=== PATIENT | male | born 1950 | race Caucasian/White ===

== ENCOUNTER 2018-06-01 10:30 | Outpatient (RCR) | payer OTHER, MEDICARE, SELFPAY ==
--- NOTE | 2018-03-23 11:12 | HP.PTEVAL_ITS ---
Patient's Visit Information KHALIDA COREA is a 67 year old M referred to Physical Therapy by JOHNNIE MATIAS with a diagnosis of Fibromyalgia. Date of Evaluation: 03/23/18 Physical Therapist: Shine Barbour PT, - Visit Plan Frequency: 2x /Week Duration: 4 Weeks Plan: B UE and LE strengthening, core stabilization, scap stab, bike, and HEP - Subjective Subjective: Pt reports chronic body pain throughout his entire body. Pt reports he hurts the most in his shoulders, LB, and LE's. Pt reports he has had PT 3 different times, which helped each time. Pt reports he is going to have a cat scan performed on 04/07/18 on his whole body. Pt reports he has been diagnosed with Fibromyalgia as well. Pt reports he has sleep diff secondary to pain. Pt reports he has a difficult time bending over to pick anything up secondary to B hip and LBP. Pt reports his major goal is to get a HEP that he can perform at his own. overall boedy pain ranges from 3/10-9/10 at worst (lifting heavy objects off of the floor) - Pain overall body pain Pain Intensity (Out of 10): 3 Pain Intensity Range: 9 - Objective Neuro: B UE and LE sensation is WNL to light touch. B patellar tendon reflex= 3/ 3, bicepital reflex= 1/3. MMT: B UE's are grossly 4+/5 throughout while B LE's are grossly 4-/5 throughout. Gait: Pt is able to ambulate independently 300' until feeling fatigued and needing to sit down and rest - Goals Goal 1:: Decrease Overall body pain x 25% to aid with sleep Goal Time Frame: 4-6 Weeks Goal 2:: Increase B UE and LE strength x 1/2 grade to aid with IADL's Goal Time Frame: 4-6 Weeks Goal 3:: Pt will be able to ambulate 500 feet without becoming too fatigued to aid with community ambulation Goal Time Frame: 4-6 Weeks Goal 4:: I with HEP Goal Time Frame: 4-6 Weeks - Rehabilitation Potential Physical Therapy Diagnosis: Pt has UE weakness, LE weakness, and limited sheree for ambulation secondary to fibromyalgia Rehabilitation Potential: Good - Anticipated Interventions Patient/Client Instruction: Educate patient on: Condition, Plan of Care For the Purpose of:: To improve self management Therapeutic Exercise to Include: Strength training, Endurance training, Balance training, Postural training, Gait and locomotor training, Dynamic Lumbar Stabilization, Scapular Strength/Stabilization For the Purpose of:: To decrease pain, To improve muscle performance and motor function, To increase tolerance to activity/condition/position Thank you for the opportunity to evaluate your patient. For Medicare and Medicare HMO plans, please review the plan of care and approve it. It will need to be FAXED BACK to us at [phone] for Medicare purposes. Please let me know if there are questions or concerns regarding this plan of care. Physician Signature: Date:
--- NOTE | 2018-06-01 11:36 | HP.PTDCSUM ---
HP - PT D/C Summary It has been my pleasure to treat KHALIDA COREA under orders from JOHNNIE MATIAS, for the diagnosis of Fibromyalgia for a total of 7 visit(s). Discharge Date: Please see the following information for a summary of their discharge status. - Subjective Subjective: Pt reports he feels much better since beginning PT. - Pain overall body pain Pain Intensity (Out of 10): 6 - Objective Objective/Function: Overall body pain has improved 50%. B UE and LE strength is now 5/5 throughout. Pt is able to ambulate 600 feet until needing to sit down secondary to LBP. Pt is I with HEP. Rx goals achieved - Goals Goal 1:: Decrease Overall body pain x 25% to aid with sleep Goal Progress: Goal Met Goal 2:: Increase B UE and LE strength x 1/2 grade to aid with IADL's Goal Progress: Goal Met Goal 3:: Pt will be able to ambulate 500 feet without becoming too fatigued to aid with community ambulation Goal Progress: Goal Met Goal 4:: I with HEP Goal Progress: Goal Met - Plan Plan: Discharge - D/C Information If there are questions or concerns regarding this patient's physical therapy, please feel free to call me at [phone]. Thank you for the referral of this patient. Sincerely, Shine Barbour, PT,
== END 2018-06-01 14:06 | disposition home or self-care (01) ==
LOC: PT 10:30
PROVIDERS: Family Provider Family Medicine; PCP Family Medicine
DX: M79.7 Fibromyalgia (principal)
CPT/HCPCS: 97110; 97161; 97530; G8981; G8982

== ENCOUNTER → 2018-06-23 09:59 | Outpatient (CLI) | payer OTHER, MEDICARE, SELFPAY ==
--- NOTE | 2018-06-23 10:45 | MRI_ITS ---
STUDY: MRI BRAIN WITH AND WITHOUT CONTRAST REASON FOR EXAM: Male, 67 years old. Dizziness history of lung cancer TECHNIQUE: Standardized multiplanar fat and water weighted pulse sequences were obtained. 8 ml of Gadavist contrast material was administered intravenously for the contrast portion of the examination. COMPARISON: CT of the brain on June 12, 2011 FINDINGS: Mild atrophy and periventricular white matter ischemic changes without mass effect or restricted diffusion.. Normal bilateral basal ganglia. Normal thalami. There is no extra-axial fluid accumulation. Normal flow voids within the major intracranial circulation suggesting patency by spin echo criteria. Normal venous enhancement. There is no enhancing intra-axial or extra-axial abnormality. Empty sella deformity of uncertain clinical significance. Normal, infundibular stalk, optic chiasm and hypothalamus. Normal tectal plate and pineal gland. Normal midbrain, kenneth and medulla. Normal cerebellum. Normal basal cisterns. Normal bilateral temporal bones. Normal bilateral internal auditory canals. No demonstrated orbital abnormality, within the constraints of a routine brain study. Minor mucosal thickening of the ethmoid air cells.. Normal calvarium and skull base. Normal visualized soft tissue structures. Normal visualized upper cervical spine. MRI/Brain W/WO Contrast IMPRESSION: Minor atrophy and periventricular white matter ischemic changes. No evidence for acute infarct or metastatic disease Electronically Signed: Remi Smith MD at 16:25 EDT , Service support ,
== END ==
PROVIDERS: Family Provider Family Medicine; PCP Family Medicine
DX: C34.90 Malignant neoplasm of unspecified part of unspecified bronchus or lung (principal)
CPT/HCPCS: 70553; A9585

== ENCOUNTER 2018-06-24 15:22 | Emergency (ER) | payer MEDICARE, OTHER, SELFPAY ==
[2018-06-24 15:23] VITALS: BP 107/58; PULSE 103; RESP 18; TEMP 37; O2SAT 91; BMI 26.5
[2018-06-24 15:32] VITALS: PULSE 100; RESP 16; O2SAT 88; O2SAT 93
--- NOTE | 2018-06-24 15:49 | EKG12_ITS ---
Test Reason : SYNCOPE Blood Pressure : / mmHG Vent. Rate : 097 BPM Atrial Rate : 097 BPM P-R Int : 192 ms QRS Dur : 082 ms QT Int : 374 ms P-R-T Axes : 064 -15 063 degrees QTc Int : 474 ms Normal sinus rhythm Leftward axis Low voltage QRS (limb leads) Septal infarct , age undetermined Abnormal ECG Confirmed by JAGJIT LOVING, JESUS ([id number]), photograph editor JUANA RICHMOND ([id number]) on 06/29/2018 1:41:24 PM Referred By: NAVEEN Confirmed By:JESUS DANIELSON MD
--- NOTE | 2018-06-24 15:50 | ED.VIS.GEN ---
History of Present Illness Chief Complaint: Fall Informant: Patient, Family Onset: Today Narrative: Patient has some type of cancer. He does not know what type, but knows that it was found in his lymph nodes. He is not undergoing any treatment yet, he is still in the diagnostic and staging phases, he had an outpatient MRI with IV gadolinium-based contrast yesterday, states he felt lightheaded directly after receiving the injection, but that passed. Yesterday evening he felt malaise, this morning he woke up feeling very weak and lightheaded. No headaches, nausea, abdominal pain, focal neurologic symptoms. States his mouth feels dry and has been drinking a lot of water, and that is been making him urinate a lot. Just prior to arrival we tried to stand up but his legs were too weak to hold him, this caused him to fall to his knees. Denies any other injury, his pain is mild there. For these reasons he was brought to the ER. Past Medical History - Allergies and Home Meds Allergies/Adverse Reactions: Allergies Iodinated Contrast- Oral and IV Dye [CONTRASTS] Allergy (Unknown, Unverified 06/24/18 15:23) Unknown patient unable to confirm allergy- listed on history from [place] Primary Care Physician: Rafiq Morales III, MD [Primary Care Provider] - Smoking Status: Current every day smoker Review of Systems All systems negative except as indicated General: Reports: Malaise. Denies: Chills, Fever Eyes: Denies: Visual changes - bilaterally, Diplopia ENT: Denies: Bilateral ear pain Respiratory: Reports: Dyspnea - Sometimes not now, Cough - Chronic. Denies: Sputum Gastrointestinal: Denies: Abdominal pain, Nausea, Vomiting, Diarrhea, Melena, Hematochezia Genitourinary: Reports: Frequency. Denies: Dysuria, Hematuria Musculoskeletal: Reports: Back pain - Left lower, chronic. Denies: Myalgias, Arthralgias, Neck pain, Swelling, Extremity Pain Skin: Denies: Rash Neurological: Reports: Headache, Weakness - Nonfocal, generalized. Denies: Parasthesia, Numbness Endocrine: Reports: Polyuria, Polydipsia. Denies: Heat intolerance, Cold intolerance Allergy: Denies: Swelling of the mouth, Swelling of the tongue Physical Exam Vital Signs/Narrative: Vital Signs Temp Pulse Resp BP Pulse Ox 06/24/18 15:32 100 16 93 06/24/18 15:23 98.6 F 103 H 18 107/58 L 91 Inital Vital Signs reviewed: Yes General: Well nourished, Well developed Head: Normocephalic, Atraumatic Eyes: Perrl, EOMI ENT: No rhinorrhea, TM's clear, Dry mucous membranes - Partially. Negative for: Nasal congestion, Sinus tenderness Neck: Supple, Nontender, No lymphadenopathy, No JVD Cardiovascular: Regular rate, Regular rhythm, No murmurs, Tachycardia - mild Respiratory: No distress, CTA bilaterally, Chest nontender Abdomen: Soft, Nontender, Nondistended, Normal bowel sounds Back: Nontender, Normal Inspection Extremities: Nontender, No edema, - - Full range of motion both knees, no effusion, no bony tenderness, all ligaments stable with short endpoints and no pain on stressing. Skin: Normal color, No rash, - - Bilateral anterior knee abrasions, just distal to patellae. No other skin lesions. Neurological: Alert, Oriented x3, Cranial nerves II-XII grossly intact, Normal Strength, Normal Sensation Psychological: Normal affect Diagnostic/Tx/Re-eval Chest X-Ray - ED: 2 View, Read by Radiologist, Right Infiltrate Impressions Chest X-Ray 06/24/18 16:40 IMPRESSION: COPD with fibrosis. Cannot exclude active infiltrate especially in the lower right lung. Electronically Signed: Babak Cortez MD at 17:00 EDT , Service support , 06/24/18 16:40 Chest PA and Lateral [RAD] Stat Laboratory Results 06/24/18 06/24/18 Range/Units 15:33 15:33 WBC 6.4 (4.4-11.0) K/mm3 RBC 5.37 (4.6-6.2) M/mm3 Hgb 16.0 (13.0-16.5) g/dl Hct 48.0 (40-54) % MCV 89.4 (80-94) fL MCH 29.8 (27.0-32.0) pg MCHC 33.3 (32-36) g/gl RDW 14.7 H (11.6-14.6) % RDW Differential 47.7 H (35.1-43.9) fl Plt Count 217 (150-450) K/mm3 MPV 9.7 (6.2-12.0) fl Immature Gran % (Auto) 0.000 (0.0-0.9) % Neut % (Auto) 57.5 (47-70) % Lymph % (Auto) 28.0 (19-41) % [place] % (Auto) 10.7 H (0-10) % Eos % (Auto) 3.3 (0-5) % Baso % (Auto) 0.5 (0-1) % Absolute Neuts (auto) 3.7 (2.0-7.7) X10^3/uL Absolute Lymphs (auto) 1.78 (0.83-4.51) X10^3/ul Total Counted Not Reportable Sodium 138 (136-145) mmol/L Potassium 4.2 (3.5-5.1) mmol/L Chloride 102 (98-107) mmol/L Carbon Dioxide 27.0 (21.0-32.0) mmol/L Anion Gap 9 (5-15) BUN 14 (7-18) mg/dL Creatinine 1.16 (0.70-1.30) mg/dL Estim Creat Clear Calc 52.28 ml/min Est GFR (MDRD) Af Amer 80 (>60) mL/min Est GFR (MDRD) Non-Af 66 (>60) mL/min BUN/Creatinine Ratio 12.1 (10-20) RATIO Glucose 146 H (74-106) mg/dL Calcium 8.7 (8.5-10.1) mg/dL Troponin I < 0.015 (<0.045) ng/mL - Rhythm Strip Rhythm Strip: Sinus Rhythm Rate: 95 Ectopy: None - EKG Initial EKG Interpretation: Sinus Rhythm, No Acute Injury Pattern, Non-Specific ST Changes - Anterior, - - No acute ST segment deviations - Medical Decision Making Patient's oxygen saturations went down to 88% on room air, he was placed on 2 L nasal cannula and is satting comfortably at 94%. His labs are reassuring, but his chest x-ray shows right lower lobe infiltrate, that is new but his last x-ray on record here was from 2005. His MRI of the brain yesterday was unremarkable sinus CT of the head was performed or felt necessary. He did not hit his head when he fell today. He has no significant bony tenderness of his knees motion is full, therefore do not think they need x-rays that are just scraped. He has had no recent admissions to the hospital, and is not being treated with any chemotherapy yet, so treated with Levaquin for what appears to be community-acquired pneumonia. His white count is normal, but the x-ray is telling. Discussed with the patient at length, he is apprehensive about staying in the hospital. I discussed risks and benefits, including the risk of further hypoxemia, myocardial infarction, which can result in . He understands that it wants to leave AGAINST MEDICAL ADVICE. He says he has appointments. He also understands that by admitting him, he will be more likely to make those appointments because he will be more likely to improve quicker. Says he understands that. He also understands that I cannot send him home on oxygen. He does agree to stay for a dose of IV Levaquin, and I advised him to return if he changes his mind or follow-up with his doctor as soon as he possibly can. was present for all of this conversation. ED Disposition - Plan for ED Patient: Disposition: Against Medical Advice Chief Complaint: Fall Diagnosis: CAP (community acquired pneumonia), Hypoxemia, Orthostatic hypotension, Generalized weakness, Abrasion of knee, bilateral Instructions: ED Pneumonia Adult, ED Hypotension Orthostatic Prescriptions: Levofloxacin [Levaquin] 750 mg PO DAILY #4 tab Referrals: Rafiq Morales III, MD [Primary Care Provider] - As soon as possible Additional Instructions: Your antibiotic was sent electronically to [facility] in [place]. It is to be started sometime tomorrow. Take the pill approximately the same time every day. He left AGAINST MEDICAL ADVICE. You are welcome to change her mind and return to the hospital for admission. Otherwise, follow-up with her doctor soon as you are able for reevaluation.
--- NOTE | 2018-06-24 15:54 | ED.DCSUM_ITS ---
History of Present Illness Chief Complaint: Fall Informant: Patient, Family Onset: Today Narrative: Patient has some type of cancer. He does not know what type, but knows that it was found in his lymph nodes. He is not undergoing any treatment yet, he is still in the diagnostic and staging phases, he had an outpatient MRI with IV gadolinium-based contrast yesterday, states he felt lightheaded directly after receiving the injection, but that passed. Yesterday evening he felt malaise, this morning he woke up feeling very weak and lightheaded. No headaches, nausea , abdominal pain, focal neurologic symptoms. States his mouth feels dry and has been drinking a lot of water, and that is been making him urinate a lot. Just prior to arrival we tried to stand up but his legs were too weak to hold him, this caused him to fall to his knees. Denies any other injury, his pain is mild there. For these reasons he was brought to the ER. Past Medical History - Allergies and Home Meds Allergies/Adverse Reactions: Allergies Iodinated Contrast- Oral and IV Dye [CONTRASTS] Allergy (Unknown, Unverified 12/11 15:23) Unknown patient unable to confirm allergy- listed on history from [place] Primary Care Physician: Rafiq Morales III, MD [Primary Care Provider] - Smoking Status: Current every day smoker Review of Systems All systems negative except as indicated General: Reports: Malaise. Denies: Chills, Fever Eyes: Denies: Visual changes - bilaterally, Diplopia ENT: Denies: Bilateral ear pain Respiratory: Reports: Dyspnea - Sometimes not now, Cough - Chronic. Denies: Sputum Gastrointestinal: Denies: Abdominal pain, Nausea, Vomiting, Diarrhea, Melena, Hematochezia Genitourinary: Reports: Frequency. Denies: Dysuria, Hematuria Musculoskeletal: Reports: Back pain - Left lower, chronic. Denies: Myalgias, Arthralgias, Neck pain, Swelling, Extremity Pain Skin: Denies: Rash Neurological: Reports: Headache, Weakness - Nonfocal, generalized. Denies: Parasthesia, Numbness Endocrine: Reports: Polyuria, Polydipsia. Denies: Heat intolerance, Cold intolerance Allergy: Denies: Swelling of the mouth, Swelling of the tongue Physical Exam Vital Signs/Narrative: Vital Signs Temp Pulse Resp BP Pulse Ox 06/24/18 15:32 100 16 93 06/24/18 15:23 98.6 F 103 H 18 107/58 L 91 Inital Vital Signs reviewed: Yes General: Well nourished, Well developed Head: Normocephalic, Atraumatic Eyes: Perrl, EOMI ENT: No rhinorrhea, TM's clear, Dry mucous membranes - Partially. Negative for : Nasal congestion, Sinus tenderness Neck: Supple, Nontender, No lymphadenopathy, No JVD Cardiovascular: Regular rate, Regular rhythm, No murmurs, Tachycardia - mild Respiratory: No distress, CTA bilaterally, Chest nontender Abdomen: Soft, Nontender, Nondistended, Normal bowel sounds Back: Nontender, Normal Inspection Extremities: Nontender, No edema, - - Full range of motion both knees, no effusion, no bony tenderness, all ligaments stable with short endpoints and no pain on stressing. Skin: Normal color, No rash, - - Bilateral anterior knee abrasions, just distal to patellae. No other skin lesions. Neurological: Alert, Oriented x3, Cranial nerves II-XII grossly intact, Normal Strength, Normal Sensation Psychological: Normal affect Diagnostic/Tx/Re-eval Chest X-Ray - ED: 2 View, Read by Radiologist, Right Infiltrate Impressions Chest X-Ray 06/24/18 16:40 IMPRESSION: COPD with fibrosis. Cannot exclude active infiltrate especially in the lower right lung. Electronically Signed: Babak Cortez MD at 17:00 EDT , Service support , 06/24/18 16:40 Chest PA and Lateral [RAD] Stat Laboratory Results 06/24/18 06/24/18 Range/Units 15:33 15:33 WBC 6.4 (4.4-11.0) K/mm3 RBC 5.37 (4.6-6.2) M/mm3 Hgb 16.0 (13.0-16.5) g/dl Hct 48.0 (40-54) % MCV 89.4 (80-94) fL MCH 29.8 (27.0-32.0) pg MCHC 33.3 (32-36) g/gl RDW 14.7 H (11.6-14.6) % RDW Differential 47.7 H (35.1-43.9) fl Plt Count 217 (150-450) K/mm3 MPV 9.7 (6.2-12.0) fl Immature Gran % (Auto) 0.000 (0.0-0.9) % Neut % (Auto) 57.5 (47-70) % Lymph % (Auto) 28.0 (19-41) % [place] % (Auto) 10.7 H (0-10) % Eos % (Auto) 3.3 (0-5) % Baso % (Auto) 0.5 (0-1) % Absolute Neuts (auto) 3.7 (2.0-7.7) X10^3/uL Absolute Lymphs (auto) 1.78 (0.83-4.51) X10^3/ul Total Counted Not Reportable Sodium 138 (136-145) mmol/L Potassium 4.2 (3.5-5.1) mmol/L Chloride 102 (98-107) mmol/L Carbon Dioxide 27.0 (21.0-32.0) mmol/L Anion Gap 9 (5-15) BUN 14 (7-18) mg/dL Creatinine 1.16 (0.70-1.30) mg/dL Estim Creat Clear Calc 52.28 ml/min Est GFR (MDRD) Af Amer 80 (>60) mL/min Est GFR (MDRD) Non-Af 66 (>60) mL/min BUN/Creatinine Ratio 12.1 (10-20) RATIO Glucose 146 H (74-106) mg/dL Calcium 8.7 (8.5-10.1) mg/dL Troponin I < 0.015 (<0.045) ng/mL - Rhythm Strip Rhythm Strip: Sinus Rhythm Rate: 95 Ectopy: None - EKG Initial EKG Interpretation: Sinus Rhythm, No Acute Injury Pattern, Non-Specific ST Changes - Anterior, - - No acute ST segment deviations - Medical Decision Making Patient's oxygen saturations went down to 88% on room air, he was placed on 2 L nasal cannula and is satting comfortably at 94%. His labs are reassuring, but his chest x-ray shows right lower lobe infiltrate, that is new but his last x- ray on record here was from 2005. His MRI of the brain yesterday was unremarkable sinus CT of the head was performed or felt necessary. He did not hit his head when he fell today. He has no significant bony tenderness of his knees motion is full, therefore do not think they need x-rays that are just scraped. He has had no recent admissions to the hospital, and is not being treated with any chemotherapy yet, so treated with Levaquin for what appears to be community-acquired pneumonia. His white count is normal, but the x-ray is telling. Discussed with the patient at length, he is apprehensive about staying in the hospital. I discussed risks and benefits, including the risk of further hypoxemia, myocardial infarction, which can result in . He understands that it wants to leave AGAINST MEDICAL ADVICE. He says he has appointments. He also understands that by admitting him, he will be more likely to make those appointments because he will be more likely to improve quicker. Says he understands that. He also understands that I cannot send him home on oxygen. He does agree to stay for a dose of IV Levaquin, and I advised him to return if he changes his mind or follow-up with his doctor as soon as he possibly can. was present for all of this conversation. ED Disposition - Plan for ED Patient: Disposition: Against Medical Advice Chief Complaint: Fall Diagnosis: CAP (community acquired pneumonia), Hypoxemia, Orthostatic hypotension, Generalized weakness, Abrasion of knee, bilateral Instructions: ED Pneumonia Adult, ED Hypotension Orthostatic Prescriptions: Levofloxacin [Levaquin] 750 mg PO DAILY #4 tab Referrals: Rafiq Morales III, MD [Primary Care Provider] - As soon as possible Additional Instructions: Your antibiotic was sent electronically to [facility] in [place]. It is to be started sometime tomorrow. Take the pill approximately the same time every day. He left AGAINST MEDICAL ADVICE. You are welcome to change her mind and return to the hospital for admission. Otherwise, follow-up with her doctor soon as you are able for reevaluation.
[2018-06-24 16:05] LABS: Absolute Lymphocyte Count 1.78 X10^3/ul (0.83-4.51); Absolute Neutrophil Count 3.7 X10^3/uL (2.0-7.7); Basophil# 0.03 X10^3/uL; Basophil% 0.5 % (0-1); Eosinophil# 0.21 X10^3/uL; Eosinophils% 3.3 % (0-5); Lymphocyte # 1.78 X10^3/ul (4.0); Mean Corp Hgb Conc 33.3 g/gl (32-36); Mean Corpuscular Hgb 29.8 pg (27.0-32.0); Mean Corpuscular Volume 89.4 fL (80-94); Mean Platelet Vol. 9.7 fl (6.2-12.0); Monocyte# 0.68 X10^3/uL; Monocyte% 10.7 % (0-10); Neutrophil # 3.66 X10^3/uL (2.7-7.7); Neutrophil % 57.5 % (47-70); Platelet Count 217 K/mm3 (150-450); RBC Distribution Width CV 14.7 % (11.6-14.6); RBC Distribution Width SD 47.7 fl (35.1-43.9); Red Blood Count 5.37 M/mm3 (4.6-6.2); White Blood Count 6.4 K/mm3 (4.4-11.0)
[2018-06-24 16:10] LABS: POSITIVE COUNT NO; POSITIVE DIFFERENTIAL NO; POSITIVE MORPHOLOGY NO
[2018-06-24 16:15] VITALS: BP 110/58; BP 111/60; BP 80/63; PULSE 101; PULSE 92; PULSE 98
[2018-06-24] MEDS: 0.9% Normal Saline 1,000 ML 999 ML IV (16:19)
[2018-06-24 16:25] LABS: Anion Gap 9 (5-15); BUN 14 mg/dL (7-18); BUN/Creat Ratio 12.1 RATIO (10-20); Calcium,Total 8.7 mg/dL (8.5-10.1); Chloride 102 mmol/L (98-107); Creatinine, Serum 1.16 mg/dL (0.70-1.30); EST Glomerular Filtration Rate 66 mL/min (>60); Est Glom Filt Rate - Afr Amer 80 mL/min (>60); Estimated Creatinine Clearance 52.28 ml/min; Glucose 146 mg/dL (74-106); Potassium 4.2 mmol/L (3.5-5.1); Sodium Level 138 mmol/L (136-145)
--- NOTE | 2018-06-24 16:40 | RAD_ITS ---
STUDY: X-RAY CHEST REASON FOR EXAM: Male, 67 years old. Weakness TECHNIQUE: Frontal and lateral views of the chest. COMPARISON: None. FINDINGS: The lungs are hyperexpanded. There are coarsened interstitial markings suggestive of moderate chronic fibrosis. Since there no prior studies, active infiltrate is not excluded especially in the lower right lung. No gross effusions. Normal size heart. Normal mediastinum and davina. Normal visualized pulmonary arteries. Normal visualized aortic arch and descending thoracic aorta. The visualized bones and joints show degenerative changes. There is no demonstrated abnormality of the visualized soft tissue structures of the upper abdomen. RAD/Chest PA and Lateral IMPRESSION: COPD with fibrosis. Cannot exclude active infiltrate especially in the lower right lung. Electronically Signed: Babak Cortez MD at 17:00 EDT , Service support ,
[2018-06-24] MEDS: levoFLOXacin IV 750 MG/150 ML BAG 100 MG IV (17:55)
[2018-06-24 17:57] VITALS: BP 131/68; PULSE 80; RESP 16; O2SAT 98
--- NOTE | 2018-06-24 19:58 | ED.RN ---
PT WAS UNABLE TO OBTAIN A URINE SPECIMEN AND REQUESTED TO LEAVE. DR. HODGE INFORMED OF SAME AND PT LEFT AMA.
== END 2018-06-24 20:00 | disposition left against medical advice (07) ==
PROVIDERS: Emergency Provider Emergency Medicine; Family Provider Family Medicine; PCP Family Medicine
DX: J18.9 Pneumonia, unspecified organism (principal); R53.1 Weakness; R09.02 Hypoxemia; I95.1 Orthostatic hypotension; S80.212A Abrasion, left knee, initial encounter; S80.211A Abrasion, right knee, initial encounter; Z79.82 Long term (current) use of aspirin; Z79.899 Other long term (current) drug therapy; W18.30XA Fall on same level, unspecified, initial encounter; Y93.89 Activity, other specified; Y92.009 Unspecified place in unspecified non-institutional (private) residence as the place of occurrence of the external cause; Y99.8 Other external cause status
CPT/HCPCS: 71046; 80048; 84484; 85025; 93005; 96361; 96365; 96366; 99285; J7030

== ENCOUNTER 2018-06-29 08:11 | Inpatient (IN) | payer MEDICARE, OTHER, SELFPAY ==
[2018-06-29] VITALS (17 sets, daily range): BP systolic 98–138; BP diastolic 50–90; PULSE 73–90; RESP 14–20; TEMP 36.4–37.2; O2SAT 92–98; BMI 27.6; BMI 26.7; BMI 26.8
--- NOTE | 2018-06-29 08:26 | CT_ITS ---
STUDY: CT BRAIN WITHOUT CONTRAST REASON FOR EXAM: Male, 67 years old. FREQUENT FALLS RADIATION DOSAGE (If Supplied By Facility): CTDIvol = ( 44.99 ) mGy, DLP = ( 863.60 ) mGycm TECHNIQUE: Transaxial CT imaging of the brain was performed without administration of intravenous contrast material. Individualized dose optimization techniques were used for this CT. COMPARISON: None. FINDINGS: There is cerebral atrophy with widening of the extra-axial spaces and ventricular dilatation. There are areas of decreased attenuation within the white matter tracts of the supratentorial brain, consistent with microvascular disease changes. There is no intracranial hemorrhage. There are no findings of an acute ischemic infarction. Normal soft tissue structures. Normal visualized paranasal sinuses. CT/Brain/Head without Contrast IMPRESSION: Chronic involutional changes of the brain. Electronically Signed: Suyapa Bolton MD at 9:31 EDT Tel , Service support ,
--- NOTE | 2018-06-29 08:26 | RAD_ITS ---
STUDY: X-RAY CHEST REASON FOR EXAM: Male, 67 years old. Weakness, frequent falls TECHNIQUE: Single AP portable view of the chest. COMPARISON: 06/24/2018 FINDINGS: Cardiac monitoring leads overlie the chest. The interstitial markings remain prominent, unchanged from prior study. There is no demonstrated pleural abnormality. Normal size heart. Normal mediastinum and davina. Normal visualized pulmonary arteries. There is mild calcification of the aortic arch. There are diffuse degenerative changes of the visualized thoracic spine. Normal visualized ribs, clavicles, and shoulders. There is no demonstrated abnormality of the visualized soft tissue structures of the upper abdomen. RAD/Chest 1 View IMPRESSION: Chronic appearing interstitial markings. No focal consolidation. Electronically Signed: Agustín Hunter DO at 9:36 EDT Tel , Service support ,
--- NOTE | 2018-06-29 08:28 | ED.VISSUMM ---
- ER Visit Summary Date of Service: 06/29/18 Chief Complaint: Multiple falls, weakness History of Present Illness: The patient is a 67 M who states he has had multiple falls over the past week. He was seen here last week for the same thing. He had a full workup and was found to have pneumonia. He left AMA because he did not want to stay in the hospital at that time. He states he has continued to fall at home. He fell twice this morning and sustained abrasions to the knees. He states his legs just feel very weak. He does have a history of lung cancer which he is getting worked up at this time. Physical Examination: Vital signs reviewed. HEENT exam unremarkable. Heart is regular rate and rhythm without murmurs. Lungs are clear to auscultation. Abdomen is soft and nontender. Extremities reveal no edema. Skin exam shows abrasions to the knees bilaterally. He is alert and oriented ?3. He has decreased leg strength, left greater than right. His left leg strength is 2/5 in the right leg strength is 4/5. His NIH is 3 Test Results: EKG is normal sinus rhythm with rate of 90. No ST changes. Labs are unremarkable except for glucose of 179. Chest x-ray and CAT scan of the head both reveal chronic changes Emergency Department Course and Treatment: Patient has asymmetric leg weakness with multiple falls. No evidence of pneumonia on his chest x-ray. Patient requires admission for further workup. He may have had a slight stroke affecting his leg. He will need further workup for this. Discussed this with the hospitalist for admission Treatment Plan: [] Disposition: Admit Impression: Multiple falls, left leg weakness This note was generated with [employer] dictation software. It may contain incorrect words, spelling, and punctuation that were not noted in review of the chart prior to signing ED Disposition - Plan for ED Patient: Chief Complaint: Fall Referrals: Rafiq Morales III, MD [Primary Care Provider] -
[2018-06-29 08:51] LABS: Bedside Glucose 189 mg/dL (70-110)
[2018-06-29 09:00] LABS: Absolute Lymphocyte Count 2.06 X10^3/ul (0.83-4.51); Absolute Neutrophil Count 5.1 X10^3/uL (2.0-7.7); Basophil# 0.03 X10^3/uL; Basophil% 0.4 % (0-1); Eosinophil# 0.22 X10^3/uL; Eosinophils% 2.7 % (0-5); Hemoglobin 14.6 g/dl (13.0-16.5); Lymphocyte # 2.06 X10^3/ul (4.0); Lymphocyte % 24.9 % (19-41); Mean Corp Hgb Conc 32.4 g/gl (32-36); Mean Corpuscular Hgb 29.2 pg (27.0-32.0); Mean Platelet Vol. 9.3 fl (6.2-12.0); Monocyte# 0.87 X10^3/uL; Monocyte% 10.5 % (0-10); Neutrophil # 5.09 X10^3/uL (2.7-7.7); Neutrophil % 61.4 % (47-70); Platelet Count 200 K/mm3 (150-450); RBC Distribution Width SD 48.8 fl (35.1-43.9); White Blood Count 8.3 K/mm3 (4.4-11.0)
[2018-06-29 09:05] LABS: International Normalized Ratio 1.1
[2018-06-29 09:06] LABS: POSITIVE COUNT NO; POSITIVE DIFFERENTIAL NO; POSITIVE MORPHOLOGY NO; Partial Thromboplast Time 33.4 Seconds (24.1-36.2)
[2018-06-29 09:19] LABS: Anion Gap 4 (5-15); BUN 18 mg/dL (7-18); BUN/Creat Ratio 15.3 RATIO (10-20); Calcium,Total 8.4 mg/dL (8.5-10.1); Chloride 102 mmol/L (98-107); Creatinine, Serum 1.18 mg/dL (0.70-1.30); EST Glomerular Filtration Rate 65 mL/min (>60); Est Glom Filt Rate - Afr Amer 79 mL/min (>60); Estimated Creatinine Clearance 51.39 ml/min; Glucose 179 mg/dL (74-106); Potassium 3.9 mmol/L (3.5-5.1); Sodium Level 136 mmol/L (136-145)
--- NOTE | 2018-06-29 09:46 | NURSING ---
DR TORREY LINTON
--- NOTE | 2018-06-29 09:53 | NURSING ---
PCU RECURRENT FALLS KORAM
--- NOTE | 2018-06-29 10:00 | CM.ED ---
Social Work Note Into complete initial assessment with pt and spouse. Introduced self and role at [facility]. The pt reports to live with his spouse in a two-story home with a one-level setup. They primarily use the back entrance which has 8 AC and no handrails. Front entry has 6 AC. Pt denies utilization of DME for ambulation, but reports 4-5 falls in the past week. Pt has never been hospitalized or in a SNF. Claims to have only participated in outpatient therapy. Confirms that he has Medicare and VA benefits. Pt does go to the [facility]. Unable to confirm which provider he sees. Explain to the pt that PT/OT will be ordered and will make a recommendation for disposition based on their findings in thier evaluation. Educate to Medicare benefit as pt is unsure of [facility] service connection. No further needs expressed at this time and pt made aware that RN SLOAN or RYAN on assigned unit will follow for discharge planning. Placed call to the [facility]. Confirm that the pt sees DANIEL Hinds and his renal case manager with [facility] is Maris. Left vm for Maris informing of pt's admission and requesting a return phone call to indicate pt's service connection. Will continue to follow and assist as needed. Tessa Devlin, ACCOUNTANT CLERK, MOP WORKER
--- NOTE | 2018-06-29 10:02 | NURSING ---
DR HIRSCH WITH PATIENT
--- NOTE | 2018-06-29 10:14 | CT_ITS ---
STUDY: CT LUMBAR SPINE WITHOUT CONTRAST REASON FOR EXAM: Male, 67 years old. Frequent falls, low back pain RADIATION DOSAGE (If Supplied By Facility): CTDIvol = ( 16.10 ) mGy, DLP = ( 479.9 ) mGycm TECHNIQUE: The patient was scanned in a multi detector CT scanner. High resolution transaxial imaging was performed. Sagittal and coronal images were reconstructed. Individualized dose optimization techniques were used for this CT. COMPARISON: None FINDINGS: Normal lumbar lordosis. There is no substantial scoliosis. Normal vertebrae of the lumbar spine. L1-2: Normal endplates. Normal disc height and morphology. Normal bilateral facet joints. Normal central canal and bilateral lateral recesses. Normal bilateral intervertebral neural foramina. L2-3: Normal endplates. Normal disc height and morphology. Normal bilateral facet joints. Normal central canal and bilateral lateral recesses. Normal bilateral intervertebral neural foramina. L3-4: There is a small broad-based disc bulge. There is hypertrophy of the ligamentum flavum, resulting in some spinal stenosis at this level. L4-5: There is a moderate broad-based disc bulge. There is relative canal stenosis due to hypertrophic changes within the facet joint and ligamentum flavum. L5-S1: Normal endplates. Normal disc height and morphology. Normal bilateral facet joints. Normal central canal and bilateral lateral recesses. Normal bilateral intervertebral neural foramina. Vascular calcifications are seen. There is sclerosis within the sacroiliac joints, left greater than right. CT/Spine Lumbar without Contrast IMPRESSION: Degenerative changes, as detailed above. No acute bony abnormality. Electronically Signed: Agustín Hunter DO at 10:54 EDT Tel , Service support ,
--- NOTE | 2018-06-29 11:00 | HP.PCM_ITS ---
Problem List (1) Falls frequently Status: Acute History of Present Illness Date of Admission: 06/29/18 Chief Complaint: frequent falls, RLE weakness The patient is a 67 year old M with a history of recently diagnosed with right lung cancer, was admitted via the ED with a complaint of frequent falls over weeks duration as well as left lower extremity due to weakness. Patient states he had an MRI of his brain a week ago to check for brain metastases and was negative. Is apparently started having falls and states his legs just gave way and feels weak. He denies any loss of consciousness, dizziness, or urinary incontinence but denies fecal incontinence. He does not have any history of seizures. Was seen in the ED a few days ago for possible pneumonia and was to be admitted for patient left AMA as he did not want to be admitted. However he fell again yesterday and so decided coming to the ED. He denied any fever or chills, any cough or chest pain, shortness of breath, abdominal pain, any diarrhea vomiting. Review of systems otherwise negative. In the ED, vitals showed blood pressure 120/60, pulse rate of 85, respiratory rate of 18 and saturation of 95% on 2 L of oxygen. Temperature is 97.5?F. Labs were pretty unremarkable, both chemistries and CBC and CT of the brain was negative for any infarct or bleed. Number CT showed small broad-based disc bulge in L3-L4 with hypertrophy of the ligamentum flavum resulting in some stenosis at this level; there is also moderate disc bulge at L4-L5 with canal stenosis. There is no compression fracture or any other fracture seen. Patient was admitted and is being managed for frequent falls. [] Past Medical History Allergies Iodinated Contrast- Oral and IV Dye [CONTRASTS] Allergy (Unknown, Verified 06/29 08:16) Unknown patient unable to confirm allergy- [facility] bee venom protein (honey bee) Allergy (Verified 06/29/18 08:16) Swelling shellfish derived Allergy (Verified 06/29/18 08:16) Hives Home Medications: Ambulatory Orders Medication Instructions Recorded Cyclobenzaprine HCl 10 mg PO TID PRN PRN 12/24/16 Finasteride [Proscar] 5 mg PO DAILY 12/24/16 Losartan Potassium [Cozaar] 25 mg PO DAILY 12/24/16 Ropinirole HCl [Requip] 1.5 mg PO QHS 12/24/16 Amitriptyline HCl [Elavil] 50 mg PO QHS 06/24/18 Aspirin E.C. [Ecotrin] 81 mg PO DAILY 06/24/18 Cholecalciferol (Vitamin D3) 2,000 unit PO DAILY 06/24/18 [D3-2000] Diphenhydramine HCl [Benadryl 25 mg PO BID 06/24/18 Allergy] Docusate Sodium [Colace] 100 mg PO BID 06/24/18 Esomeprazole Mag Trihydrate 40 mg PO DAILY 06/24/18 [Nexium] Lorazepam [Ativan] 0.5 mg PO BID 06/24/18 Magnesium Oxide 420 mg PO BID 06/24/18 Metoprolol Tartrate 12.5 mg PO BID 06/24/18 Pregabalin [Lyrica] 75 mg PO BID 06/24/18 Terbinafine HCl 250 mg PO DAILY 06/24/18 Surgical History: no surgical history Psychiatric History: No pertinent psych hx Lives: Spouse/ Significant Other Smoking Status: Current every day smoker - ~ 50 pack year smoking history Alcohol: Occasional Drugs: None - *Family History Paternal History Items: Cancer, Heart Disease Sibling History Items: Cancer Review of Systems Constitutional: Denies: Chills, Fever, Weight Change Eyes: Denies: Blurred vision, Double vision, Vision Change HEENT: Reports: - - slurred speech. Denies: Head Aches, Sinus Congestion, Sinus Drainage Cardiovascular: Denies: Chest Pain, Chest Pressure, Chest Tightness, Palpitations, Paroxysmal Noc. Dyspnea Respiratory: Denies: Cough, Shortness of breath at rest, Sputum production Gastrointestinal: Denies: Abdominal Pain, Nausea, Vomiting Genitourinary: Denies: Dysuria Musculoskeletal: Reports: - - chronic back pain. Denies: Joint Pain, Joint Tenderness Skin: Denies: Rash, Wounds Neurological: Reports: Slurred speech - per his . Denies: Confusion, Focal weakness, Incoordination, Numbness, Tingling, Tremor, Seizures Psychiatric: Denies: Anxiety, Depression, Homicidal Ideations, Suicidal Ideations Hematologic/ Lymphatic: Denies: Easy Bruising, Easy Bleeding VTE Information - Inpt Only VTE Present on Admission: No VTE Mechan Device Prophylaxis: SCD's VTE Pharm Prophylaxis ordered?: Yes Patient Problems: Active and Suspected Problems Falls frequently (Acute) - Physical Exam General: Alert, Oriented x3, Cooperative, No apparent distress HEENT: Atraumatic, PERRLA, EOMI, Normocephalic Oral: Moist Mucosa Neck: Supple, No JVD, Negative Carotid Bruits, No Nodes Lungs: Clear to auscultation, Normal air movement, No rhonchi, No wheeze, No rales Cardiovascular: Regular rate, Regular Rhythm, Normal S1, Normal S2, No murmurs Abdomen: Bowel Sounds Present, Soft, Non Tender, Non-Distended, No Hepato- splenomegaly Extremities: No clubbing, No cyanosis, No edema, Capillary Refill Less than 3 Seconds Skin: No rashes, No breakdown Musculoskeletal: No Tenderness to Palpation of Joints or Extremities Lymphatic: No Cervical, Supraclavicular, or Inguinal Adenopathy Neurological: Cranial nerves II-XII grossly intact, - - power in LLE is 2+/5, able to plantar flex, but impaired dorsiflexion. Babinski's jaleel NIH stroke scale -3 Psych/Mental Status: Normal Affect Vital Signs Temp Pulse Resp BP Pulse Ox 97.5 F L 85 18 122/60 H 95 06/29/18 08:13 06/29/18 10:03 06/29/18 10:03 06/29/18 10:03 06/29/18 10:03 Oxygen Flow Rate (L/min) 2 Oxygen Delivery Method Nasal Cannula Impressions Brain CT 06/29/18 08:26 IMPRESSION: Chronic involutional changes of the brain. Electronically Signed: Suyapa Bolton MD at 9:31 EDT Tel , Service support , Chest X-Ray 06/29/18 08:26 IMPRESSION: Chronic appearing interstitial markings. No focal consolidation. Electronically Signed: Agustín Hunter DO at 9:36 EDT Tel , Service support , Lumbar Spine CT 06/29/18 10:14 IMPRESSION: Degenerative changes, as detailed above. No acute bony abnormality. Electronically Signed: Agustín Hunter DO at 10:54 EDT Tel , Service support , 06/29/18 08:26 Brain/Head without Contrast [CT] Stat Chest 1 View [RAD] Stat 06/29/18 10:14 CT Lumbar [Spine Lumbar without Contrast] [CT] Urgent Laboratory Results 06/29/18 06/29/18 06/29/18 Range/Units 08:38 08:46 08:46 WBC 8.3 (4.4-11.0) K/mm3 RBC 5.00 (4.6-6.2) M/mm3 Hgb 14.6 (13.0-16.5) g/dl Hct 45.0 (40-54) % MCV 90.0 (80-94) fL MCH 29.2 (27.0-32.0) pg MCHC 32.4 (32-36) g/gl RDW 15.0 H (11.6-14.6) % RDW Differential 48.8 H (35.1-43.9) fl Plt Count 200 (150-450) K/mm3 MPV 9.3 (6.2-12.0) fl Immature Gran % (Auto) 0.100 (0.0-0.9) % Neut % (Auto) 61.4 (47-70) % Lymph % (Auto) 24.9 (19-41) % [place] % (Auto) 10.5 H (0-10) % Eos % (Auto) 2.7 (0-5) % Baso % (Auto) 0.4 (0-1) % Absolute Neuts (auto) 5.1 (2.0-7.7) X10^3/uL Absolute Lymphs (auto) 2.06 (0.83-4.51) X10^3/ul Total Counted Not Reportable PT 14.0 (11.7-14.9) SECONDS INR 1.1 APTT 33.4 (24.1-36.2) Seconds Sodium (136-145) mmol/L Potassium (3.5-5.1) mmol/L Chloride (98-107) mmol/L Carbon Dioxide (21.0-32.0) mmol/L Anion Gap (5-15) BUN (7-18) mg/dL Creatinine (0.70-1.30) mg/dL Estim Creat Clear Calc ml/min Est GFR (MDRD) Af Amer (>60) mL/min Est GFR (MDRD) Non-Af (>60) mL/min BUN/Creatinine Ratio (10-20) RATIO Glucose (74-106) mg/dL Calcium (8.5-10.1) mg/dL Troponin I (<0.045) ng/mL POC Glucose 189 H (70-110) mg/dL 06/29/18 Range/Units 08:46 WBC (4.4-11.0) K/mm3 RBC (4.6-6.2) M/mm3 Hgb (13.0-16.5) g/dl Hct (40-54) % MCV (80-94) fL MCH (27.0-32.0) pg MCHC (32-36) g/gl RDW (11.6-14.6) % RDW Differential (35.1-43.9) fl Plt Count (150-450) K/mm3 MPV (6.2-12.0) fl Immature Gran % (Auto) (0.0-0.9) % Neut % (Auto) (47-70) % Lymph % (Auto) (19-41) % [place] % (Auto) (0-10) % Eos % (Auto) (0-5) % Baso % (Auto) (0-1) % Absolute Neuts (auto) (2.0-7.7) X10^3/uL Absolute Lymphs (auto) (0.83-4.51) X10^3/ul Total Counted PT (11.7-14.9) SECONDS INR APTT (24.1-36.2) Seconds Sodium 136 (136-145) mmol/L Potassium 3.9 (3.5-5.1) mmol/L Chloride 102 (98-107) mmol/L Carbon Dioxide 30.0 (21.0-32.0) mmol/L Anion Gap 4 L (5-15) BUN 18 (7-18) mg/dL Creatinine 1.18 (0.70-1.30) mg/dL Estim Creat Clear Calc 51.39 ml/min Est GFR (MDRD) Af Amer 79 (>60) mL/min Est GFR (MDRD) Non-Af 65 (>60) mL/min BUN/Creatinine Ratio 15.3 (10-20) RATIO Glucose 179 H (74-106) mg/dL Calcium 8.4 L (8.5-10.1) mg/dL Troponin I < 0.015 (<0.045) ng/mL POC Glucose (70-110) mg/dL Assessment/Plan All Active Problems Falls frequently (Acute) 67 y/o presenting with a complaint of frequent falls of one week duration, and associated LLE weakness with urinary incontinence 1. Recurrent falls, likely due to lumbar spinal stenosis. * will want to make sure there is no seizure, in light of urine incontinence; a stroke is less likely, but given his extensive smoking history and history of cancer, will need to rule taht out too * CT brain was negative. * CT lumbar spine showed lumbar spinal stenosis at L3-4; cord compression ruled out. * EKG showed no acute ST changes * NIH stroke scale was 3 * will admit to PCU with telemetry * Will get A1C, lipid panel * will check MRI brain and MRA neck without contrast * give aspirin 325mg once and atorvastatin 40mg once, then continue aspirin 81mg daily and atorvastatin 40mg qhs * had an MRI last week (06/23/18) which showed no evidence of malignancy or infarct; however, symptoms started after MRI so would repeat it. * neurology consult * NPO until swallow evaluation * fall precautions * EEG * will benefit from neurosurgery consult on discharge. * 2. Right lung cancer * recently diagnosed * follows up at [facility] * recent MRI negative for any metastases * to follow up with oncologist upon dischage * yet to start treatment, was diagnosed a few weeks ago * 3. Hypertension: BP controlled. BP-120/61 at review. On metoprolol 12.5mg bid. Will continue 4.BPH: on finasteride DVT prophylaxis: lovenox Code status: Full code: Patient and counseled extensively about different types of CODE STATUS namely full code, DNR CCA and DNR CCA. Patient elects to be full code. Total [id number] time 12 minutes. This note was generated with [employer] software. It may contain incorrect words, spelling, and punctuation that were not noted in checking the note before signing. Code Visit Inpatient E&M: 93381 Init Hosp L3 Procedures: 42880 Advncd Care Plan 30 Min
--- NOTE | 2018-06-29 11:23 | CM.ED ---
Discussed transfer option with patient and spouse. Patient states he prefers to stay at [facility] and [facility]. [facility] W[facility] form signed, faxed to [facility], and placed in chart. Copy provided to patient. Call placed to [facility]. Voice message left stating the patient does not wish to transfer to [place] and will remain at [facility]. Call back information provided.
[2018-06-29] MEDS: DiphenhydrAMINE 25 MG Capsule PO ×2 (12:35→22:08)
[2018-06-29] MEDS: 0.9% Normal Saline 1,000 ML 100 ML IV ×2 (12:35→22:17)
--- NOTE | 2018-06-29 13:05 | MRI_ITS ---
STUDY: MRI BRAIN WITHOUT CONTRAST REASON FOR EXAM: Male, 67 years old. Weakness and fall. Lung cancer. Dizziness TECHNIQUE: Standardized multiplanar fat and water weighted pulse sequences were obtained. COMPARISON: June 29, 2018 CT brain. FINDINGS: No evidence for shift of midline structures, mass effect or compression of ventricles noted. No acute intra-articular extra-axial hemorrhage is seen. No abnormal intracranial fluid collections identified. The basal cisterns are patent. Posterior fossa structures demonstrate no discrete mass. Skull base vascular flow voids are patent. Small chronic microhemorrhage in the left parietal lobe seen. Few scattered foci of T2/FLAIR hyperintensity in the periventricular and subcortical white matter which are nonspecific in imaging appearance however may relate with mild chronic small vessel disease. Age-related involutional changes. Ventricular system appears unremarkable No evidence for cerebellar tonsillar herniation. Partially empty sella. IMPRESSION: No evidence for acute or subacute ischemic insult. No evidence for intracranial mass or acute hemorrhage. Chronic small vessel disease. Please note metastatic disease is not entirely excluded on this noncontrast MRI exam. Postcontrast MR imaging provides better assessment Electronically Signed: Bean Motley, at 22:35 EDT Tel , Service support , MRI/Brain without Contrast
--- NOTE | 2018-06-29 13:05 | MRI_ITS ---
STUDY: MRA NECK WITHOUT CONTRAST REASON FOR EXAM: Male, 67 years old. Fall. Dizziness TECHNIQUE: Source images were obtained, MIPs were performed. The study was performed unenhanced. COMPARISON: None. FINDINGS: RIGHT CAROTID ARTERIES: The origin of the great vessels are not well visualized. The bilateral common carotid arteries are patent. The carotid bifurcations appear patent. The cervical internal carotid arteries are patent. Origin of the right vertebral artery is not visualized however remaining segments of the vertebral arteries are patent. IMPRESSION: Significantly motion degraded MR angiogram of the neck. No significant cervical carotid or vertebral artery stenosis seen within the limits of this examination. Please consider MR angiogram with IV contrast for better assessment. Electronically Signed: Bean Motley, at 23:27 EDT Tel , Service support , MRI/MRA Neck without Contrast
--- NOTE | 2018-06-29 14:12 | MRI_ITS ---
STUDY: MRA OF THE HEAD WITHOUT CONTRAST REASON FOR EXAM: Male, 67 years old. Weakness and fall TECHNIQUE: 3-D pize-dy-mmreij (TOF) imaging was performed with MIPs. The study was performed unenhanced. COMPARISON: None. FINDINGS: Petrous, cavernous and supraclinoid segments of the internal carotid arteries are patent. Mild atherosclerotic disease of the right supraclinoid internal carotid artery seen. Small infundibulum versus aneurysm at the origin of the left posterior communicating artery noted measuring approximately 3 mm Bilateral middle cerebral arteries are patent. Hypoplastic right A1 segment of the anterior cerebral artery. Atherosclerotic disease of the M1 segments of the bilateral middle cerebral artery, right greater than left. Atherosclerotic disease with narrowing of the bilateral and posterior cerebral arteries also seen. The vertebrobasilar junction is patent. The basilar artery is patent. The superior cerebellar arteries are patent. IMPRESSION: Intracranial atherosclerotic disease involving the middle and posterior cerebral arteries. No evidence for intracranial large vessel occlusion. Small infundibulum versus 3 mm aneurysm at the origin of the left posterior communicating artery. Electronically Signed: Bean Motley, at 23:24 EDT Tel , Service support , MRI/MRA Head ONLY without Contrast
[2018-06-29 14:27] LABS: Cholesterol 187 mg/dL (200); High Density Lipoprotein 27 mg/dL; Triglycerides 203 mg/dL; Very Low Density Lipoprotein 41 mg/dL (5-40)
[2018-06-29] MEDS: Aspirin 325 MG Tablet PO (14:28)
[2018-06-29 14:49] LABS: Hemoglobin A1c 6.2 % (4.2-6.3)
[2018-06-29] MEDS: Docusate Sodium 100 MG Capsule PO (22:08)
[2018-06-29] MEDS: Metoprolol Tartrate 25 MG Tablet 12.5 MG PO (22:09)
[2018-06-29] MEDS: Amitriptyline 25 MG Tablet 50 MG PO (22:09)
[2018-06-29] MEDS: Atorvastatin Calcium 40 MG Tablet PO (22:09)
[2018-06-29] MEDS: LORazepam 1 MG Tablet 0.5 MG PO (22:13)
[2018-06-29] MEDS: Pramipexole Di-HCl 0.25 MG Tablet 0.75 MG PO (22:14)
[2018-06-29] MEDS: Magnesium Oxide 400 MG Tablet PO (22:14)
[2018-06-29] MEDS: Pregabalin 75 MG Capsule PO (22:17)
[2018-06-30] VITALS (11 sets, daily range): BP systolic 140–159; BP diastolic 67–78; PULSE 78–93; RESP 12–18; TEMP 36.5–37.3; O2SAT 92–98; BMI 26.7
--- NOTE | 2018-06-30 07:22 | ECHOD_ITS ---
Reason For Study: EMBOLI Procedure This was a 2D Doppler, Color Flow transthoracic echocardiogram. The exam was of fair technical quality due to diminished acoustic windows. The study was technically difficult. Exam performed portable in patient room. Left Ventricle Normal LV size. Left ventricular systolic function is normal. The estimated ejection fraction is 60 %. There is evidence of diastolic dysfunction. No regional wall motion abnormalities noted. Right Ventricle Normal RV size. Normal systolic function. Atria Normal left atrium. Normal right atrium. No doppler evidence for ASD. Mitral Valve There is no mitral annular calcification. Mild mitral valve prolapse. Trivial mitral valve insufficiency. Tricuspid Valve Normal tricuspid valve. Trivial tricuspid valve insufficiency. Unable to estimate RV systolic pressure/pulmonary artery pressure due to technically difficult study. Aortic Valve Trisinus/trileaflet aortic valve. Normal aortic valve. Pulmonic Valve The pulmonic valve is not well visualized. Great Vessels Normal sized aortic root. Pericardium/Pleural No pericardial effusion. MMode/2D Measurements & Calculations LVIDd: 4.6 cm IVSd: 0.90 cm Ao root diam: 3.2 cm LVIDs: 3.2 cm LVPWd: 0.99 cm LA dimension: 2.7 cm RVDd: 2.8 cm FS: 29.5 % LAV(MOD-bp): 29.3 ml LVAd ap4: 27.8 cm2 SV(MOD-sp4): 54.6 ml LAV(MOD-bp) Indexed: 16.2 ml/m2 EDV(MOD-sp4): 90.9 ml LAV(MOD-sp2): 35.7 ml EDV(sp4-el): 92.5 ml LAV(MOD-sp4): 25.5 ml LVAs ap4: 15.8 cm2 ESV(MOD-sp4): 36.3 ml ESV(sp4-el): 36.3 ml EF(MOD-sp4): 60.0 % EF(sp4-el): 60.7 % SV(sp4-el): 56.2 ml LA A4 area: 11.8 cm2 RA A4 area: 10.8 cm2 Time Measurements MV dec time: 0.16 sec Doppler Measurements & Calculations MV E max jonah: 76.2 cm/sec Lat Peak E' Jonah: 3.3 cm/sec Med Peak E' Jonah: 5.9 cm/sec MV A max jonah: 111.8 cm/sec E/E' lat: 23.1 E/E' med: 13.0 MV E/A: 0.68 Ao V2 max: 103.1 cm/sec LV V1 max: 77.5 cm/sec PA V2 max: 75.9 cm/sec Ao max P.3 mmHg LV V1 max P.4 mmHg Interpretation Summary The study was technically difficult. Left ventricular systolic function is normal. The estimated ejection fraction is 60 %. Mild mitral valve prolapse. Trivial mitral valve insufficiency. Trivial tricuspid valve insufficiency. Unable to estimate RV systolic pressure/pulmonary artery pressure due to technically difficult study. There is evidence of diastolic dysfunction. Ordering Physician: Hollie Mejia Referring Physician: LINDA GEE Performed By: Marilee Cano, RDCS, RVT
[2018-06-30] MEDS: 0.9% Normal Saline 1,000 ML 100 ML IV (08:31)
[2018-06-30] MEDS: DiphenhydrAMINE 25 MG Capsule PO (08:32)
[2018-06-30] MEDS: Docusate Sodium 100 MG Capsule PO (08:32)
[2018-06-30] MEDS: Aspirin E.C. 81 MG Tablet PO (08:32)
[2018-06-30] MEDS: Losartan Potassium 25 MG Tablet PO (08:33)
[2018-06-30] MEDS: Metoprolol Tartrate 25 MG Tablet 12.5 MG PO (08:33)
[2018-06-30] MEDS: Finasteride 5 MG Tablet PO (08:34)
[2018-06-30] MEDS: Enoxaparin 40 MG/0.4 ML Syringe SC (08:34)
[2018-06-30] MEDS: Magnesium Oxide 400 MG Tablet PO (08:34)
[2018-06-30] MEDS: Pantoprazole Sodium 40 MG Tablet PO (08:35)
[2018-06-30] MEDS: LORazepam 1 MG Tablet 0.5 MG PO (08:43)
[2018-06-30] MEDS: Pregabalin 75 MG Capsule PO (08:44)
--- NOTE | 2018-06-30 10:07 | CM.ED ---
Social Work Note VM from Agustín Bobby at [facility] stating that the pt is 80% service connected and could go to a contracted [place] [facility] if they chose. The only contracted facility in [facility] is [facility]. Left vm for SW on assigned unit, RANDY Rodriguez, GAS PLANT DISPATCHER, RESEARCH EPIDEMIOLOGIST
--- NOTE | 2018-06-30 11:02 | EEG ---
- Electroencephalogram Date of service 06/29/18 This is an 18 channel electroencephalogram performed on this 67-year-old male with a history of recurrent falls and left-sided weakness. 18 channel electroencephalogram was performed utilizing the International 10-20 electrode placement protocol. EKG reference leads are also performed, along with photic stimulation. Background activity is 10 Hz symmetrically in the posterior leads which attenuates with eye opening. The patient did drowse during the recording with no lateralizing or epileptiform changes. EKG was normal sinus rhythm throughout the recording and photic stimulation generates a normal symmetric driving response in the posterior leads. Impression: This is a normal awake and drowsy electroencephalogram.
--- NOTE | 2018-06-30 11:25 | PCM.CONS.GEN ---
Reason for Consult Date of Consultation: 06/30/18 Reason for Consultation: falls History of Present Illness: The patient is a 67 year old M with recent diagnosis of lung ca, two weeks ago noted back pain, improved but not resolved, no associated injury. one week ago became weak in his legs resulting in falls, left leg weaker, no arm weakness, no associated illness or med changes, no injury from falling. at bedside report 4 falls. reports urinary incontinence for several days. per admit h&p:The patient is a 67 year old M with a history of recently diagnosed with right lung cancer, was admitted via the ED with a complaint of frequent falls over weeks duration as well as left lower extremity due to weakness. Patient states he had an MRI of his brain a week ago to check for brain metastases and was negative. Is apparently started having falls and states his legs just gave way and feels weak. He denies any loss of consciousness, dizziness, or urinary incontinence but denies fecal incontinence. He does not have any history of seizures. Was seen in the ED a few days ago for possible pneumonia and was to be admitted for patient left AMA as he did not want to be admitted. However he fell again yesterday and so decided coming to the ED. He denied any fever or chills, any cough or chest pain, shortness of breath, abdominal pain, any diarrhea vomiting. Review of systems otherwise negative. In the ED, vitals showed blood pressure 120/60, pulse rate of 85, respiratory rate of 18 and saturation of 95% on 2 L of oxygen. Temperature is 97.5?F. Labs were pretty unremarkable, both chemistries and CBC and CT of the brain was negative for any infarct or bleed. Number CT showed small broad-based disc bulge in L3-L4 with hypertrophy of the ligamentum flavum resulting in some stenosis at this level; there is also moderate disc bulge at L4-L5 with canal stenosis. There is no compression fracture or any other fracture seen. Patient was admitted and is being managed for frequent falls. Past Medical History Allergies Iodinated Contrast- Oral and IV Dye [CONTRASTS] Allergy (Unknown, Verified 06/29/18 08:16) Unknown patient unable to confirm allergy- [facility] bee [facility] (honey bee) Allergy (Verified 06/29/18 08:16) Swelling shellfish derived Allergy (Verified 06/29/18 08:16) Hives Home Medications: Ambulatory Orders Medication Instructions Recorded Cyclobenzaprine HCl 10 mg PO TID PRN PRN 12/24/16 Finasteride [Proscar] 5 mg PO DAILY 12/24/16 Losartan Potassium [Cozaar] 25 mg PO DAILY 12/24/16 Ropinirole HCl [Requip] 1.5 mg PO QHS 12/24/16 Amitriptyline HCl [Elavil] 50 mg PO QHS 06/24/18 Aspirin E.C. [Ecotrin] 81 mg PO DAILY 06/24/18 Cholecalciferol (Vitamin D3) 2,000 unit PO DAILY 06/24/18 [D3-2000] Diphenhydramine HCl [Benadryl 25 mg PO BID 06/24/18 Allergy] Docusate Sodium [Colace] 100 mg PO BID 06/24/18 Esomeprazole Mag Trihydrate 40 mg PO DAILY 06/24/18 [Nexium] Lorazepam [Ativan] 0.5 mg PO BID 06/24/18 Magnesium Oxide 420 mg PO BID 06/24/18 Metoprolol Tartrate 12.5 mg PO BID 06/24/18 Pregabalin [Lyrica] 75 mg PO BID 06/24/18 Terbinafine HCl 250 mg PO DAILY 06/24/18 Surgical History: no surgical history Psychiatric History: No pertinent psych hx Lives: Spouse/ Significant Other Smoking Status: Current every day smoker Tobacco Use: Cigarettes Alcohol: Occasional Drugs: None - *Family History Paternal History Items: Cancer, Heart Disease Sibling History Items: Cancer Review of Systems Constitutional: Denies: Chills, Fever, Weight Change HEENT: Denies: Head Aches, Sinus Congestion, Sinus Drainage Cardiovascular: Denies: Chest Pain, Palpitations Respiratory: Denies: Cough, Shortness of breath at rest, Sputum production Gastrointestinal: Denies: Abdominal Pain, Nausea, Vomiting Genitourinary: Denies: Dysuria Musculoskeletal: Denies: Joint Pain, Joint Tenderness Skin: Denies: Rash, Wounds Neurological: Denies: Numbness, Tingling, Focal weakness Psychiatric: Denies: Anxiety, Depression, Homicidal Ideations, Suicidal Ideations Hematologic/ Lymphatic: Denies: Easy Bruising, Easy Bleeding Patient Problems: Active and Suspected Problems Falls frequently (Acute) Objective: On examination he is awake, falls asleep quickly but is arousable and follows simple commands Cranial nerves are intact Strength and sensation in his upper extremities is intact He has a T4 sensory level Legs are weak, worse on the left side which is 2/5, 3/5 on the right. Both toes are upgoing - Physical Exam Vital Signs Temp Pulse Resp BP Pulse Ox 36.5 C L 92 12 144/78 H 94 06/30/18 08:00 06/30/18 10:56 06/30/18 08:00 06/30/18 08:00 06/30/18 08:00 Oxygen Flow Rate (L/min) 2 Oxygen Delivery Method Nasal Cannula Weight: 73 kg Body Mass Index (BMI) 26.7 Intake and Output for Last 24 Hours 06/28/18 06/29/18 06/30/18 23:59 23:59 23:59 Intake Total 593 / 593 1038 / 1038 Output Total 1125 / 1125 500 / 500 Balance -532 / -532 538 / 538 Assessment/Plan All Active Problems Falls frequently (Acute) suspect thoracic myelopathy, concerning for mets, aware mri thoracic spine, if consistent with mets, consult heme/onc, steroids addedum: enhancing solitary mass intramedullary at t5. will add high dose steroids and consult heme/onc
--- NOTE | 2018-06-30 11:35 | MRI_ITS ---
STUDY: MRI THORACIC SPINE WITH AND WITHOUT CONTRAST REASON FOR EXAM: Male, 67 years old. T4 SENSORY CHANGES. New lung CA dx. falls, H/As, dizziness. TECHNIQUE: 7 ml of Gadavist was administered intravenously for the contrast portion of the examination. COMPARISON: None. FINDINGS: Normal kyphosis of the thoracic spine. There is no substantial scoliosis. T1-2, T2-3, T3-4, T4-5, T5-6, T6-7, T7-8, T8-9, T9-10, T10-11, T11-12: There is mild diffuse disc space narrowing and endplate spondylosis without significant central canal or foraminal stenosis. There is 2 cm enhancing lesion within the spinal cord at T4 level with expansion of the cord. There is extensive superiorly and inferiorly surrounding cord edema extending lower cervical spine and down to level of T8. The soft tissue structures are unremarkable. MRI/Spine Thoracic W/WO Contrast IMPRESSION: 2 cm spinal cord enhancing lesion at T4 with extensive surrounding spinal cord edema. Leading differential considerations are neoplastic disease (metastatic and primary disease) N.B. : The above information has been verbally conveyed by Suyapa Bolton MD to Sahra Mott, [facility]- In-Patient RN, on 06/30/2018 14:34:35 (ET). Electronically Signed: Suyapa Bolton MD at 14:09 EDT Tel , Service support ,
--- NOTE | 2018-06-30 12:16 | PCM.PN.HOSP ---
Patient Problems: Active and Suspected Problems Falls frequently (Acute) Subjective: Patient seen and examined this morning. He was admitted with complaint of left lower extremity weakness. Stroke was ruled out by negative CT and MRI of the head and brain. Compression fracture was ruled out with negative lumbar spine CT and CT of the lumbar spine revealed spinal stenosis. Neurology has been consulted. Patient has no complaints and feels well this morning. He denies any fever or chills, any cough or chest pain, shortness of breath, abdominal pain, any diarrhea vomiting. 12 point review of systems otherwise negative. by his bedside and claims that she cannot take care of patient at home and therefore wants him placed. Patient was initially not amenable to SNF placement, but agreed after his convinced him. Vitals/I&O's: Vital Signs Temp Pulse Resp BP Pulse Ox 97.7 F L 92 12 144/78 H 94 06/30/18 08:00 06/30/18 10:56 06/30/18 08:00 06/30/18 08:00 06/30/18 08:00 Oxygen Flow Rate (L/min) 2 Oxygen Delivery Method Nasal Cannula Weight: 160 lb 14.999 oz Body Mass Index (BMI) 26.7 Intake and Output for Last 24 Hours 06/28/18 06/29/18 06/30/18 23:59 23:59 23:59 Intake Total 593 / 593 1038 / 1038 Output Total 1125 / 1125 500 / 500 Balance -532 / -532 538 / 538 General: Alert, Oriented x3, Cooperative, No apparent distress HEENT: Atraumatic, PERRLA, EOMI, Normocephalic Oral: Moist Mucosa Neck: Supple, No JVD, Negative Carotid Bruits, No Nodes Lungs: Clear to auscultation, Normal air movement, No rhonchi, No wheeze, No rales Cardiovascular: Regular rate, Regular Rhythm, Normal S1, Normal S2, No murmurs Abdomen: Bowel Sounds Present, Soft, Non Tender, Non-Distended, No Hepato-splenomegaly Extremities: No clubbing, No cyanosis, No edema, Capillary Refill Less than 3 Seconds Skin: No rashes, No breakdown Musculoskeletal: No Tenderness to Palpation of Joints or Extremities Lymphatic: No Cervical, Supraclavicular, or Inguinal Adenopathy Neurological: Cranial nerves II-XII grossly intact, Neuro grossly intact, Motor Exam 5/5 strength throughout Psych/Mental Status: Normal Affect, Appropriate, Alert and oriented to time, place, person, mood and affect Current Medications Amitriptyline HCl (Elavil) 50 mg PO QHS [facility] Last Admin: 06/29/18 22:09 Dose: 50 mg [facility] Last Admin: 06/30/18 08:32 Dose: 81 mg Atorvastatin Calcium (Lipitor) 40 mg PO QHS [facility] Last Admin: 06/29/18 22:09 Dose: 40 mg Cholecalciferol (Vitamin D) 2,000 unit PO DAILY [facility] Last Admin: 06/30/18 08:35 Dose: 2,000 unit Cyclobenzaprine HCl (Flexeril) 10 mg PO TID PRN PRN PRN Reason: muscle spasms Diphenhydramine HCl (Benadryl) 25 mg PO BID [facility] Last Admin: 06/30/18 08:32 Dose: 25 mg Docusate Sodium (Colace) 100 mg PO BID [facility] Last Admin: 06/30/18 08:32 Dose: 100 mg Enoxaparin Sodium (Lovenox) 40 mg SC DAILY@1000 [facility] Last Admin: 06/30/18 08:34 Dose: 40 mg Finasteride (Proscar) 5 mg PO DAILY [facility] Last Admin: 06/30/18 08:34 Dose: 5 mg Sodium Chloride () 500 mls @ 999 mls/hr IV .Q31M ONE Last Admin: 06/29/18 08:36 Dose: 999 mls/hr Sodium Chloride () 1,000 mls @ 100 mls/hr IV .Q10H [facility] Last Admin: 06/30/18 08:31 Dose: 100 mls/hr Lorazepam (Ativan) 0.5 mg PO BID [facility] Last Admin: 06/30/18 08:43 Dose: 0.5 mg Losartan Potassium (Cozaar) 25 mg PO DAILY [facility] Last Admin: 06/30/18 08:33 Dose: 25 mg Magnesium Hydroxide (Milk Of Magnesia) 30 ml PO DAILY PRN PRN PRN Reason: Constipation Magnesium Oxide (Mag-Ox 400) 400 mg PO BID [facility] Last Admin: 06/30/18 08:34 Dose: 400 mg Metoprolol Tartrate (Lopressor (Beta Cruz)) 12.5 mg PO BID [facility] Last Admin: 06/30/18 08:33 Dose: 12.5 mg Pantoprazole Sodium (Protonix) 40 mg PO DAILY [facility] Last Admin: 06/30/18 08:35 Dose: 40 mg Pramipexole Dihydrochloride (Mirapex) 0.75 mg PO QHS [facility] Last Admin: 06/29/18 22:14 Dose: 0.75 mg Pregabalin (Lyrica) 75 mg PO BID [facility] Last Admin: 06/30/18 08:44 Dose: 75 mg Sodium Chloride () 5 - 30 ml IV UD PRN PRN Reason: SALINE FLUSH Medical Necessity - Tobacco Use Smoking Status: Current every day smoker Tobacco Use: Cigarettes Assessment/Plan All Active Problems Falls frequently (Acute) 1. Recurrent falls no complaints today CT brain was negative. CT lumbar spine showed lumbar spinal stenosis at L3-4; cord compression ruled out. EKG showed no acute ST changes NIH stroke scale was 3 on admission, is 0 today MRI brain and neck were negative for any stroke on aspirin 81 mg daily and atorvastatin 40mg qhs neurology reviewed patient today, suspect thoracic myelopathy due to possible mets; MRI of thoracic spine ordered MRI thoracic spine showed 2cm enhancing lesion at T4, with cord expansion and extensive cord edema. on thoracic spine with edema. Urgent oncology consult placed, and decision made to transfer patient to oncology service patient started on IV dexamethasone fall precautions to refer to neurosurgeon upon discharge 2. Right lung cancer recently diagnosed follows up at [facility] recent MRI negative for any metastases to follow up with oncologist upon dischage yet to start treatment, was diagnosed a few weeks ago 3. Hypertension: BP controlled. On metoprolol 12.5mg bid. 4.BPH: on finasteride DVT prophylaxis: lovenox Disposition: transfer to today Code status: Full code This note was generated with [employer] dictation software. It may contain incorrect words, spelling, and punctuation that were not noted in checking the note before signing. Code Visit Inpatient E&M: 43966 [facility] Hosp L3
--- NOTE | 2018-06-30 12:20 | PN_ITS ---
Patient Problems: Active and Suspected Problems Falls frequently (Acute) Subjective: Patient seen and examined this morning. He was admitted with complaint of left lower extremity weakness. Stroke was ruled out by negative CT and MRI of the head and brain. Compression fracture was ruled out with negative lumbar spine CT and CT of the lumbar spine revealed spinal stenosis. Neurology has been consulted. Patient has no complaints and feels well this morning. He denies any fever or chills, any cough or chest pain, shortness of breath, abdominal pain, any diarrhea vomiting. 12 point review of systems otherwise negative. by his bedside and claims that she cannot take care of patient at home and therefore wants him placed. Patient was initially not amenable to SNF placement , but agreed after his convinced him. Vitals/I&O's: Vital Signs Temp Pulse Resp BP Pulse Ox 97.7 F L 92 12 144/78 H 94 06/30/18 08:00 06/30/18 10:56 06/30/18 08:00 06/30/18 08:00 06/30/18 08:00 Oxygen Flow Rate (L/min) 2 Oxygen Delivery Method Nasal Cannula Weight: 160 lb 14.999 oz Body Mass Index (BMI) 26.7 Intake and Output for Last 24 Hours 06/28/18 06/29/18 06/30/18 23:59 23:59 23:59 Intake Total 593 / 593 1038 / 1038 Output Total 1125 / 1125 500 / 500 Balance -532 / -532 538 / 538 General: Alert, Oriented x3, Cooperative, No apparent distress HEENT: Atraumatic, PERRLA, EOMI, Normocephalic Oral: Moist Mucosa Neck: Supple, No JVD, Negative Carotid Bruits, No Nodes Lungs: Clear to auscultation, Normal air movement, No rhonchi, No wheeze, No rales Cardiovascular: Regular rate, Regular Rhythm, Normal S1, Normal S2, No murmurs Abdomen: Bowel Sounds Present, Soft, Non Tender, Non-Distended, No Hepato- splenomegaly Extremities: No clubbing, No cyanosis, No edema, Capillary Refill Less than 3 Seconds Skin: No rashes, No breakdown Musculoskeletal: No Tenderness to Palpation of Joints or Extremities Lymphatic: No Cervical, Supraclavicular, or Inguinal Adenopathy Neurological: Cranial nerves II-XII grossly intact, Neuro grossly intact, Motor Exam 5/5 strength throughout Psych/Mental Status: Normal Affect, Appropriate, Alert and oriented to time, place, person, mood and affect Current Medications Amitriptyline HCl (Elavil) 50 mg PO QHS [facility] Last Admin: 06/29/18 22:09 Dose: 50 mg [facility] ([facility]) [facility] Last Admin: 06/30/18 08:32 Dose: 81 mg Atorvastatin Calcium (Lipitor) 40 mg PO QHS [facility] Last Admin: 06/29/18 22:09 Dose: 40 mg Cholecalciferol (Vitamin D) 2,000 unit PO DAILY [facility] Last Admin: 06/30/18 08:35 Dose: 2,000 unit Cyclobenzaprine HCl (Flexeril) 10 mg PO TID PRN PRN PRN Reason: muscle spasms Diphenhydramine HCl (Benadryl) 25 mg PO BID [facility] Last Admin: 06/30/18 08:32 Dose: 25 mg Docusate Sodium (Colace) 100 mg PO BID [facility] Last Admin: 06/30/18 08:32 Dose: 100 mg Enoxaparin Sodium (Lovenox) 40 mg SC DAILY@1000 [facility] Last Admin: 06/30/18 08:34 Dose: 40 mg Finasteride (Proscar) 5 mg PO DAILY [facility] Last Admin: 06/30/18 08:34 Dose: 5 mg Sodium Chloride () 500 mls @ 999 mls/hr IV .Q31M [facility] Last Admin: 06/29/18 08:36 Dose: 999 mls/hr Sodium Chloride () 1,000 mls @ 100 mls/hr IV .Q10H [facility] Last Admin: 06/30/18 08:31 Dose: 100 mls/hr Lorazepam (Ativan) 0.5 mg PO BID [facility] Last Admin: 06/30/18 08:43 Dose: 0.5 mg Losartan Potassium (Cozaar) 25 mg PO DAILY [facility] Last Admin: 06/30/18 08:33 Dose: 25 mg Magnesium Hydroxide (Milk Of Magnesia) 30 ml PO DAILY PRN PRN PRN Reason: Constipation Magnesium Oxide (Mag-Ox 400) 400 mg PO BID [facility] Last Admin: 06/30/18 08:34 Dose: 400 mg Metoprolol Tartrate (Lopressor (Beta Cruz)) 12.5 mg PO BID [facility] Last Admin: 06/30/18 08:33 Dose: 12.5 mg Pantoprazole Sodium (Protonix) 40 mg PO DAILY [facility] Last Admin: 06/30/18 08:35 Dose: 40 mg Pramipexole Dihydrochloride (Mirapex) 0.75 mg PO QHS [facility] Last Admin: 06/29/18 22:14 Dose: 0.75 mg Pregabalin (Lyrica) 75 mg PO BID [facility] Last Admin: 06/30/18 08:44 Dose: 75 mg Sodium Chloride () 5 - 30 ml IV UD PRN PRN Reason: SALINE FLUSH Medical Necessity - Tobacco Use Smoking Status: Current every day smoker Tobacco Use: Cigarettes Assessment/Plan All Active Problems Falls frequently (Acute) 1. Recurrent falls * no complaints today * CT brain was negative. * CT lumbar spine showed lumbar spinal stenosis at L3-4; cord compression ruled out. * EKG showed no acute ST changes * NIH stroke scale was 3 on admission, is 0 today * MRI brain and neck were negative for any stroke * on aspirin 81 mg daily and atorvastatin 40mg qhs * neurology reviewed patient today, suspect thoracic myelopathy due to possible mets; MRI of thoracic spine ordered * MRI thoracic spine showed 2cm enhancing lesion at T4, with cord expansion and extensive cord edema. on thoracic spine with edema. Urgent oncology consult placed, and decision made to transfer patient to oncology service * patient started on IV dexamethasone * fall precautions * to refer to neurosurgeon upon discharge * * 2. Right lung cancer * recently diagnosed * follows up at [facility] * recent MRI negative for any metastases * to follow up with oncologist upon dischage * yet to start treatment, was diagnosed a few weeks ago * 3. Hypertension: BP controlled. On metoprolol 12.5mg bid. 4.BPH: on finasteride DVT prophylaxis: lovenox Disposition: transfer to today Code status: Full code This note was generated with [employer] dictation software. It may contain incorrect words, spelling, and punctuation that were not noted in checking the note before signing. Code Visit Inpatient E&M: 36287 [facility] Hosp L3
--- NOTE | 2018-06-30 13:38 | CASEMGMT ---
SW spoke with patient's as patient was gone getting a test. She confirmed he needs to go to a SNF as she cannot care for him like this. SW gave her a list of local facilities. Ana LOPEZ MSW
--- NOTE | 2018-06-30 15:23 | PCM.TXEXTCAR ---
- Diet 06/29/18 10:57 Diet: Regular Diet Food consistency:: Regular Liquid Consistency:: Regular/Thin - Routine Orders/Code Status Enema Type: Fleetz Enema Frequency: Daily PRN Suppository Type: Dulcolax 10mg Suppository Frequency: Daily PRN O2 Frequency: PRN Keep PO Greater than or Equal to (%): 92 Code Status: Full Code - Wound(s) bi lateral knees Wound Type: Abrasion - Therapies Weight Bearing: Weight bearing as tolerated Physical Therapy: Eval and Treat Occupational Therapy: Eval and Treat - Problem/Diagnosis (1) Falls frequently Status: Acute Current Visit: Yes - Allergies/Procedures Done in Hospital Allergies/Adverse Reactions: Allergies Iodinated Contrast- Oral and IV Dye [CONTRASTS] Allergy (Unknown, Verified 06/29/18 08:16) Unknown patient unable to confirm allergy- [facility] bee [facility] (honey bee) Allergy (Verified 06/29/18 08:16) Swelling shellfish derived Allergy (Verified 06/29/18 08:16) Hives Procedures: None - Type of Care/Length of Stay Estimated LOS: Convalescent Care Less Than 30 days Type of Care Needed: Skilled Rehab Potential: Fair Prognosis: Fair - Additional Orders/Day of Discharge H&P will serve as current which was dated: 06/29/18 Day of Discharge: 06/30/18 - Dietary and Speech Recommendations Speech Linguistic Eval Summary: Patient is a 67 year old male recently diagnosed with right lobe lung cancer, who presented to [facility] ED on 06/29/2018 with a complaint of frequent falls over a weeks duration as well as left lower extremity weakness. 06/29/2018 Brain MRI revealed no evidence for acute or subacute ischemic insult, no evidence for intracranial mass or acute hemorrhage, chronic small vessel disease, please note metastatic disease is not entirely excluded on this noncontrast MRI exam. 06/29/2018 Neck MRA revealed significantly motion degraded MR angiogram of the neck, no significant cervical carotid or vertebral artery stenosis seen within the limits of this examination, please consider MR angiogram with IV contrast for better assessment. 06/29/2018 Head MRA revealed intracranial atherosclerotic disease involving the middle and posterior cerebral arteries. 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 Saw patient at bedside upon return to unit from testing. Verbal expression marked by slow rate of speech w/ mildy impaired articulatory precision, more consistent w/ excessive lethargy than dysarthria. present and reports that there have been changes in cognition since falls began last Friday. Patient is retired from the [employer] lives w/ , was driving and managing own medications prior to falls. manages finances. plans for SNF placement at d/c d/t inability to care for patient in current state. Patient unable to maintain sufficient alertness for continued participation in evaluation, falling asleep/snoring several times during session. Rachael NEWBY aware of excessive lethargy & reprots that patient was awake most of the night. Will reattempt continued evaluation later this date pending patient's ability to tolerate/participate. - Follow Up Care Primary Care Physician: Rafiq Morales III, MD [Primary Care Provider] - Please follow up with your Primary Care Physician in: one week
--- NOTE | 2018-06-30 15:27 | TREXTCAR_ITS ---
- Diet 06/29/18 10:57 Diet: Regular Diet Food consistency:: Regular Liquid Consistency:: Regular/Thin - Routine Orders/Code Status Enema Type: Fleetz Enema Frequency: Daily PRN Suppository Type: Dulcolax 10mg Suppository Frequency: Daily PRN O2 Frequency: PRN Keep PO Greater than or Equal to (%): 92 Code Status: Full Code - Wound(s) bi lateral knees Wound Type: Abrasion - Therapies Weight Bearing: Weight bearing as tolerated Physical Therapy: Eval and Treat Occupational Therapy: Eval and Treat - Problem/Diagnosis (1) Falls frequently Status: Acute Current Visit: Yes - Allergies/Procedures Done in Hospital Allergies/Adverse Reactions: Allergies Iodinated Contrast- Oral and IV Dye [CONTRASTS] Allergy (Unknown, Verified 06/29 08:16) Unknown patient unable to confirm allergy- [facility] bee venom protein (honey bee) Allergy (Verified 06/29/18 08:16) Swelling shellfish derived Allergy (Verified 06/29/18 08:16) Hives Procedures: None - Type of Care/Length of Stay Estimated LOS: Convalescent Care Less Than 30 days Type of Care Needed: Skilled Rehab Potential: Fair Prognosis: Fair - Additional Orders/Day of Discharge H&P will serve as current which was dated: 06/29/18 Day of Discharge: 06/30/18 - Dietary and Speech Recommendations Speech Linguistic Eval Summary: Patient is a 67 year old male recently diagnosed with right lobe lung cancer, who presented to [facility] ED on 06/29/2018 with a complaint of frequent falls over a weeks duration as well as left lower extremity weakness. 06/29/2018 Brain MRI revealed no evidence for acute or subacute ischemic insult, no evidence for intracranial mass or acute hemorrhage , chronic small vessel disease, please note metastatic disease is not entirely excluded on this noncontrast MRI exam. 06/29/2018 Neck MRA revealed significantly motion degraded MR angiogram of the neck, no significant cervical carotid or vertebral artery stenosis seen within the limits of this examination , please consider MR angiogram with IV contrast for better assessment. 2017 Head MRA revealed intracranial atherosclerotic disease involving the middle and posterior cerebral arteries. 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 Saw patient at bedside upon return to unit from testing. Verbal expression marked by slow rate of speech w/ mildy impaired articulatory precision, more consistent w/ excessive lethargy than dysarthria. present and reports that there have been changes in cognition since falls began last Friday. Patient is retired from the [employer] lives w/ , was driving and managing own medications prior to falls. manages finances. plans for SNF placement at d/c d/t inability to care for patient in current state. Patient unable to maintain sufficient alertness for continued participation in evaluation, falling asleep/ snoring several times during session. Rachael NEWBY aware of excessive lethargy & reprots that patient was awake most of the night. Will reattempt continued evaluation later this date pending patient's ability to tolerate/participate. - Follow Up Care Primary Care Physician: Rafiq Morales III, MD [Primary Care Provider] - Please follow up with your Primary Care Physician in: one week
--- NOTE | 2018-06-30 15:27 | PCM.DC.SUM ---
Discharge Date and Diagnosis - Problem List Patient Problems: Active and Suspected Problems Falls frequently (Acute) Date of Admission: 06/29/18 Date of Discharge: 06/30/18 - Primary Discharge Diagnosis Active and Suspected Problems Falls frequently (Acute) Hospital Course and Treatment Imaging Results: 06/30/18 07:22 Echo Complete [ECHO] Routine 06/30/18 11:35 MRI Spine [Spine Thoracic W/WO Contrast] [MRI] Urgent Diagnostic Data Brain CT 06/29/18 08:26 IMPRESSION: Chronic involutional changes of the brain. Electronically Signed: Suyapa Bolton MD at 9:31 EDT Tel , Service support , Chest X-Ray 06/29/18 08:26 IMPRESSION: Chronic appearing interstitial markings. No focal consolidation. Electronically Signed: Agustín Hunter DO at 9:36 EDT Tel , Service support , Lumbar Spine CT 06/29/18 10:14 IMPRESSION: Degenerative changes, as detailed above. No acute bony abnormality. Electronically Signed: Agustín Hunter DO at 10:54 EDT Tel , Service support , Brain MRI 06/29/18 13:05 Neck MRA 06/29/18 13:05 Head MRA 06/29/18 14:12 Thoracic Spine MRI 06/30/18 11:35 IMPRESSION: 2 cm spinal cord enhancing lesion at T4 with extensive surrounding spinal cord edema. Leading differential considerations are neoplastic disease (metastatic and primary disease) N.B. : The above information has been verbally conveyed by Suyapa Bolton MD to Sahra Mott, Hospital- In-Patient RN, on 06/30/2018 14:34:35 (ET). Electronically Signed: Suyapa Bolton MD at 14:09 EDT Tel , Service support , Laboratory Tests 06/29/18 06/29/18 06/29/18 08:38 08:46 08:46 WBC 8.3 RBC 5.00 Hgb 14.6 Hct 45.0 MCV 90.0 MCH 29.2 MCHC 32.4 RDW 15.0 H RDW Differential 48.8 H Plt Count 200 MPV 9.3 Immature Gran % (Auto) 0.100 Neut % (Auto) 61.4 Lymph % (Auto) 24.9 [place] % (Auto) 10.5 H Eos % (Auto) 2.7 Baso % (Auto) 0.4 Absolute Neuts (auto) 5.1 Absolute Lymphs (auto) 2.06 Total Counted Not Reportable PT 14.0 INR 1.1 APTT 33.4 Sodium Potassium Chloride Carbon Dioxide Anion Gap BUN Creatinine Estim Creat Clear Calc Est GFR (MDRD) Af Amer Est GFR (MDRD) Non-Af BUN/Creatinine Ratio Glucose Hemoglobin A1c Calcium Troponin I Triglycerides Cholesterol LDL Cholesterol VLDL Cholesterol HDL Cholesterol POC Glucose 189 H 06/29/18 06/29/18 06/29/18 08:46 08:46 08:46 WBC RBC Hgb Hct MCV MCH MCHC RDW RDW Differential Plt Count MPV Immature Gran % (Auto) Neut % (Auto) Lymph % (Auto) [place] % (Auto) Eos % (Auto) Baso % (Auto) Absolute Neuts (auto) Absolute Lymphs (auto) Total Counted PT INR APTT Sodium 136 Potassium 3.9 Chloride 102 Carbon Dioxide 30.0 Anion Gap 4 L BUN 18 Creatinine 1.18 Estim Creat Clear Calc 51.39 Est GFR (MDRD) Af Amer 79 Est GFR (MDRD) Non-Af 65 BUN/Creatinine Ratio 15.3 Glucose 179 H Hemoglobin A1c 6.2 Calcium 8.4 L Troponin I < 0.015 Triglycerides 203 H Cholesterol 187 LDL Cholesterol 119 VLDL Cholesterol 41 H HDL Cholesterol 27 L POC Glucose neurology oncology Operations: None Procedures: 2-D Echocardiogram Summary of Care Provided: The patient is a 67 year old M with a history of recently diagnosed lung cancer. He was admitted via the ED on 06/29/2018 with a complaint of frequent falls of 1 week duration and left lower extremity weakness. According to patient he had an MRI of his brain done a week prior to admission history appropriate mental status and was negative. He started having falls and stated that his legs just gave when he fell week. He had no assisted loss of consciousness or dizziness but had assisted urinary incontinence. He did not have any history of seizures. CT of the brain was negative for any infarct or bleed lumbar CT showed broad-based disc bulging L3-L4 with hypertrophy of the ligamentum flavum resulting in some stenosis and L4-L5 canal stenosis as well. There was no compression fracture. He was initially admitted and managed and suspicion of CVA and had an MRI and MRA of the brain and neck which was also negative. Neurology was consulted. Patient remained stable. EEG done was a normal awake and drowsy EEG. Echo showed normal LV systolic function, with EF of 60%, trivial TR and MR, nad unable to check RV systolic pressure due to techinical difficulty; there was evidence of diastolic dysfunction. Per neurology, thoracic spine MRI was ordered on account of suspicion for thoracic myelopathy. Thoracic spine MRI picked up a 2 cm enhancing lesion within the spinal cord at T4 level with expansion of the cord and extensive cord edema extending superiorly and inferiorly towards the lower cervical spine and down to the level of T8. Soft tissues were unremarkable. Urgent oncology consult was placed and decision was made to transfer patient to [facility] to follow-up with his primary oncologist Dr. Eladio Arce who was at [place]. Patient was transferred to [facility] on 06/30/18 under the service of Dr. Carcamo. [] Discharge Diet: 2000 mg Sodium Diet Weight Bearing Status: Weight bearing as tolerated Home Medications: Medications to take at Discharge Cyclobenzaprine HCl 10 mg PO TID PRN PRN 12/24/16 Finasteride [Proscar] 5 mg PO DAILY 12/24/16 Losartan Potassium [Cozaar] 25 mg PO DAILY 12/24/16 Ropinirole HCl [Requip] 1.5 mg PO QHS 12/24/16 Amitriptyline HCl [Elavil] 50 mg PO QHS 06/24/18 Aspirin E.C. [Ecotrin] 81 mg PO DAILY 06/24/18 Cholecalciferol (Vitamin D3) [D3-2000] 2,000 unit PO DAILY 06/24/18 Diphenhydramine HCl [Benadryl Allergy] 25 mg PO BID 06/24/18 Docusate Sodium [Colace] 100 mg PO BID 06/24/18 Esomeprazole Mag Trihydrate [Nexium] 40 mg PO DAILY 06/24/18 Lorazepam [Ativan] 0.5 mg PO BID 06/24/18 Magnesium Oxide 420 mg PO BID 06/24/18 Metoprolol Tartrate 12.5 mg PO BID 06/24/18 Pregabalin [Lyrica] 75 mg PO BID 06/24/18 Terbinafine HCl 250 mg PO DAILY 06/24/18 Primary Care Physician: Rafiq Morales III, MD [Primary Care Provider] - Please follow up with your Primary Care Physician in: one week Disposition: [facility] Minutes spent on discharge:: 45 Patient Condition:: Critical Medical Necessity - Tobacco Use Smoking Status: Current every day smoker Tobacco Use: Cigarettes Meaningful Use Info Meaningful Use Diagnoses (Choose all that apply): None applicable Code Visit Inpatient E&M: 15748 Disch Hosp
--- NOTE | 2018-06-30 15:35 | DS.PCM_ITS ---
Discharge Date and Diagnosis - Problem List Patient Problems: Active and Suspected Problems Falls frequently (Acute) Date of Admission: 06/29/18 Date of Discharge: 06/30/18 - Primary Discharge Diagnosis Active and Suspected Problems Falls frequently (Acute) Hospital Course and Treatment Imaging Results: 06/30/18 07:22 Echo Complete [ECHO] Routine 06/30/18 11:35 MRI Spine [Spine Thoracic W/WO Contrast] [MRI] Urgent Diagnostic Data Brain CT 06/29/18 08:26 IMPRESSION: Chronic involutional changes of the brain. Electronically Signed: Suyapa Bolton MD at 9:31 EDT Tel , Service support , Chest X-Ray 06/29/18 08:26 IMPRESSION: Chronic appearing interstitial markings. No focal consolidation. Electronically Signed: Agustín Hunter DO at 9:36 EDT Tel , Service support , Lumbar Spine CT 06/29/18 10:14 IMPRESSION: Degenerative changes, as detailed above. No acute bony abnormality. Electronically Signed: Agustín Hunter DO at 10:54 EDT Tel , Service support , Brain MRI 06/29/18 13:05 Neck MRA 06/29/18 13:05 Head MRA 06/29/18 14:12 Thoracic Spine MRI 06/30/18 11:35 IMPRESSION: 2 cm spinal cord enhancing lesion at T4 with extensive surrounding spinal cord edema. Leading differential considerations are neoplastic disease (metastatic and primary disease) N.B. : The above information has been verbally conveyed by Suyapa Bolton MD to Sahra Mott, Hospital- In-Patient RN, on 06/30/2018 14:34:35 (ET). Electronically Signed: Suyapa Bolton MD at 14:09 EDT Tel , Service support , Laboratory Tests 06/29/18 06/29/18 06/29/18 08:38 08:46 08:46 WBC 8.3 RBC 5.00 Hgb 14.6 Hct 45.0 MCV 90.0 MCH 29.2 MCHC 32.4 RDW 15.0 H RDW Differential 48.8 H Plt Count 200 MPV 9.3 Immature Gran % (Auto) 0.100 Neut % (Auto) 61.4 Lymph % (Auto) 24.9 [place] % (Auto) 10.5 H Eos % (Auto) 2.7 Baso % (Auto) 0.4 Absolute Neuts (auto) 5.1 Absolute Lymphs (auto) 2.06 Total Counted Not Reportable PT 14.0 INR 1.1 APTT 33.4 Sodium Potassium Chloride Carbon Dioxide Anion Gap BUN Creatinine Estim Creat Clear Calc Est GFR (MDRD) Af Amer Est GFR (MDRD) Non-Af BUN/Creatinine Ratio Glucose Hemoglobin A1c Calcium Troponin I Triglycerides Cholesterol LDL Cholesterol VLDL Cholesterol HDL Cholesterol POC Glucose 189 H 06/29/18 06/29/18 06/29/18 08:46 08:46 08:46 WBC RBC Hgb Hct MCV MCH MCHC RDW RDW Differential Plt Count MPV Immature Gran % (Auto) Neut % (Auto) Lymph % (Auto) [place] % (Auto) Eos % (Auto) Baso % (Auto) Absolute Neuts (auto) Absolute Lymphs (auto) Total Counted PT INR APTT Sodium 136 Potassium 3.9 Chloride 102 Carbon Dioxide 30.0 Anion Gap 4 L BUN 18 Creatinine 1.18 Estim Creat Clear Calc 51.39 Est GFR (MDRD) Af Amer 79 Est GFR (MDRD) Non-Af 65 BUN/Creatinine Ratio 15.3 Glucose 179 H Hemoglobin A1c 6.2 Calcium 8.4 L Troponin I < 0.015 Triglycerides 203 H Cholesterol 187 LDL Cholesterol 119 VLDL Cholesterol 41 H HDL Cholesterol 27 L POC Glucose neurology oncology Operations: None Procedures: 2-D Echocardiogram Summary of Care Provided: The patient is a 67 year old M with a history of recently diagnosed lung cancer. He was admitted via the ED on 06/29/2018 with a complaint of frequent falls of 1 week duration and left lower extremity weakness. According to patient he had an MRI of his brain done a week prior to admission history appropriate mental status and was negative. He started having falls and stated that his legs just gave when he fell week. He had no assisted loss of consciousness or dizziness but had assisted urinary incontinence. He did not have any history of seizures. CT of the brain was negative for any infarct or bleed lumbar CT showed broad-based disc bulging L3-L4 with hypertrophy of the ligamentum flavum resulting in some stenosis and L4-L5 canal stenosis as well. There was no compression fracture. He was initially admitted and managed and suspicion of CVA and had an MRI and MRA of the brain and neck which was also negative. Neurology was consulted. Patient remained stable. EEG done was a normal awake and drowsy EEG. Echo showed normal LV systolic function, with EF of 60%, trivial TR and MR, nad unable to check RV systolic pressure due to techinical difficulty; there was evidence of diastolic dysfunction. Per neurology, thoracic spine MRI was ordered on account of suspicion for thoracic myelopathy. Thoracic spine MRI picked up a 2 cm enhancing lesion within the spinal cord at T4 level with expansion of the cord and extensive cord edema extending superiorly and inferiorly towards the lower cervical spine and down to the level of T8. Soft tissues were unremarkable. Urgent oncology consult was placed and decision was made to transfer patient to [facility] to follow-up with his primary oncologist Dr. Eladio Arce who was at [place]. Patient was transferred to [facility] on 06/30/18 under the service of Dr. Carcamo. [] Discharge Diet: 2000 mg Sodium Diet Weight Bearing Status: Weight bearing as tolerated Home Medications: Medications to take at Discharge Cyclobenzaprine HCl 10 mg PO TID PRN PRN 12/24/16 Finasteride [Proscar] 5 mg PO DAILY 12/24/16 Losartan Potassium [Cozaar] 25 mg PO DAILY 12/24/16 Ropinirole HCl [Requip] 1.5 mg PO QHS 12/24/16 Amitriptyline HCl [Elavil] 50 mg PO QHS 06/24/18 Aspirin E.C. [Ecotrin] 81 mg PO DAILY 06/24/18 Cholecalciferol (Vitamin D3) [D3-2000] 2,000 unit PO DAILY 06/24/18 Diphenhydramine HCl [Benadryl Allergy] 25 mg PO BID 06/24/18 Docusate Sodium [Colace] 100 mg PO BID 06/24/18 Esomeprazole Mag Trihydrate [Nexium] 40 mg PO DAILY 06/24/18 Lorazepam [Ativan] 0.5 mg PO BID 06/24/18 Magnesium Oxide 420 mg PO BID 06/24/18 Metoprolol Tartrate 12.5 mg PO BID 06/24/18 Pregabalin [Lyrica] 75 mg PO BID 06/24/18 Terbinafine HCl 250 mg PO DAILY 06/24/18 Primary Care Physician: Rafiq Morales III, MD [Primary Care Provider] - Please follow up with your Primary Care Physician in: one week Disposition: [facility] Minutes spent on discharge:: 45 Patient Condition:: Critical Medical Necessity - Tobacco Use Smoking Status: Current every day smoker Tobacco Use: Cigarettes Meaningful Use Info Meaningful Use Diagnoses (Choose all that apply): None applicable Code Visit Inpatient E&M: 13984 Disch Hosp
--- NOTE | 2018-06-30 18:43 | NURSING ---
REPORT CALLED TO MARLY NEWBY AT [facility].
== END 2018-06-30 20:25 | disposition short-term general hospital (02) | DRG 92 ==
LOC: ED 08:46 → PCU 10:02
PROVIDERS: Admitting Provider Student in an Organized Health Care Education/Training Program; Emergency Provider Emergency Medicine; Family Provider Family Medicine; PCP Family Medicine; Visit Provider Student in an Organized Health Care Education/Training Program
DX: R29.6 Repeated falls (principal); G95.89 Other specified diseases of spinal cord; C34.91 Malignant neoplasm of unspecified part of right bronchus or lung; Z91.81 History of falling; M48.061 Spinal stenosis, lumbar region without neurogenic claudication; I10 Essential (primary) hypertension; F17.210 Nicotine dependence, cigarettes, uncomplicated; N40.1 Benign prostatic hyperplasia with lower urinary tract symptoms; N39.498 Other specified urinary incontinence; Z79.82 Long term (current) use of aspirin; Z79.899 Other long term (current) drug therapy
CPT/HCPCS: 70450; 70544; 70547; 70551; 71045; 72131; 72157; 80048; 80061; 82962; 83036; 84484; 85025; 85610; 85730; 92523; 93005; 93306; 97162; 97165; 99285; 99406; A9585; J7030; J7040; A4216

== ENCOUNTER → 2018-07-14 20:34 | Outpatient (CLI) | payer OTHER, MEDICARE, SELFPAY ==
[2018-07-14 20:57] LABS: Color, Urine Yellow (Yellow); Glucose, Dipstick 50 mg/dl (Normal); Ketone-Dipstick 5 mg/dl (Negative); Leukocyte Esterase-Dipstick 500 /ul (Negative); Nitrite-Dipstick Negative (Negative); Occult Blood-Urine 250 /ul (Negative); Protein-Dipstick 30 mg/dl (Negative); Urine Bilirubin Dipstick Negative (Negative); Urine Clarity Cloudy (Clear); Urine Urobilinogen 1 mg/dl (Normal)
== END ==
DX: R41.82 Altered mental status, unspecified (principal)
CPT/HCPCS: 81002; 87086; 87088; 87186